=== PATIENT | female | born 1975 | race Caucasian/White ===

== ENCOUNTER → 2017-04-18 10:11 | Outpatient (CLI) | payer BC ==
[2015-09-08 02:27] VITALS: BMI 53.5
[~2017-04-18 10:11] MED LIST: AMBIEN10 MG PO; ARTHROTEC EC 71 EACH PO; CYMBALTA60 MG PO; FOLIC ACID1 MG PO; HYDROCODONE-APA1 TAB PO; MILK THISTLE140 MG PO; NEXIUM40 MG PO; PROTONIX40 MG PO; VITAMIN B-1000 MCG/M IM; VITAMIN D5000 UNIT PO; XANAX1 MG PO
--- NOTE | 2017-04-18 12:09 | NUR ---
Nutrition education for pre/post bariatric surgery: S: Pt reports she had a gastric bypass in 1999 and lost ~170#; however, pt has gained all the lost weight back and now weighs 321#. Pt states she is a stress eater and had numerous surgeries which caused her to gain all the weight back. Pt states she does not eat fast food and drinks only diet sodas. Pts food recall reveals pt is only eating two meals a day. Pt states she does not overeat very often. O: 41 year old female Dx: Morbid obesity Ht: 5'4" Wt: 321# IBW: 120# +/-10% BMI: 55.1 A: Pt is not revealing to me a realistic diet recall. Pt is overeating at meals to be able to gain back 170#. Pt states her only problem is eating peppermint candy when her blood count is low. Pt also reported to me she cooks most meals at home. Pt did report she recently lost and then gained back 30# by giving up regular soda. Reviewed the phases of post-op diet; reviewed sample menus; pouch stretching; no carbonated drinks; daily supplements; protein needs; liquids between meals. Pt with good understanding of information provided. However, I don't think pt is being honest with me or herself about how much food she is eating every day. RDN does not think pt is ready to make the necessary lifestyle changes needed to be successful with lont-term weight loss. P: Provided pt with printed diet information and RDN name and phone number. RDN will be available if needed. Thank you for the consult.
== END ==
LOC: D.FANS 03-13 10:00
DX: Z01.818 Encounter for other preprocedural examination (principal)

== ENCOUNTER → 2017-05-30 17:04 | Outpatient (CLI) | payer BC ==
[2015-09-08 02:27] VITALS: BMI 53.5
== END | disposition home or self-care (01) ==
LOC: D.MAMMO 14:30
DX: Z12.31 Encounter for screening mammogram for malignant neoplasm of breast (principal)

== ENCOUNTER → 2017-07-21 09:13 | Outpatient (CLI) | payer BC ==
[2015-09-08 02:27] VITALS: BMI 53.5
== END | disposition home or self-care (01) ==
LOC: D.RAD 07-17 08:30
DX: E66.01 Morbid (severe) obesity due to excess calories (principal)

== ENCOUNTER 2017-07-31 06:12 | Day surgery (SDC) | payer BC ==
[~2017-07-31] VITALS: Ht 162.6 cm; Wt 145.5 kg
[~2017-07-31 06:12] MED LIST changes: +NEXIUM20 MG PO; -NEXIUM40 MG PO
[2017-07-31] MEDS ORDERED: ROBAXIN500 MG PO (07:17)
[2017-07-31] MEDS ORDERED: IBUPROFEN800 MG PO (07:17)
[2017-07-31] MEDS ORDERED: MOBIC7.5 MG PO (07:17)
[2017-07-31] MEDS ORDERED: GABAPENTIN100 MG PO (07:18)
[2017-07-31] MEDS ORDERED: ZOFRAN ODT4 MG/UDTAB PO (07:18)
[2017-07-31] MEDS ORDERED: LISINOPRIL10 MG PO (07:19)
[2017-07-31] MEDS ORDERED: PROZAC40 MG PO (07:20)
[2017-07-31] MEDS ORDERED: HYSINGLA ER20 MG PO (07:21)
[2017-07-31 07:22] LABS: HEMATOCRIT 36.8 % (36.0-48.0); HEMOGLOBIN 11.5 g/dL (12-16); MCH 24.7 pg (26.0-34.0); MCHC 31.3 g/dL (31.0-37.0); MEAN PLATELET VOLUME 12.2 fL (7.4-10.4); RBC 4.66 10x6/uL (4.00-5.40); RDW 15.4 % (11.5-14.5); WBC 6.9 10x3/uL (4.8-10.8)
[2017-07-31 07:27] VITALS: Ht 162.6 cm; Wt 145.5 kg
== END 2017-07-31 09:35 | disposition home or self-care (01) ==
LOC: D.OPS 06:12
PROVIDERS: Anesthesiology
DX: K21.9 Gastro-esophageal reflux disease without esophagitis (principal); K44.9 Diaphragmatic hernia without obstruction or gangrene; I10 Essential (primary) hypertension; E66.01 Morbid (severe) obesity due to excess calories; Z68.43 Body mass index [BMI] 50.0-59.9, adult; Z01.812 Encounter for preprocedural laboratory examination

== ENCOUNTER 2017-09-20 05:12 | Inpatient (IN) | payer BC, MEDICARE ==
[2017-09-19 13:37] LABS: HEMATOCRIT 39.3 % (36.0-48.0); HEMOGLOBIN 12.2 g/dL (12-16); MCH 25.3 pg (26.0-34.0); MCV 81.4 fL (80.0-100.0); MEAN PLATELET VOLUME 11.7 fL (7.4-10.4); RBC 4.83 10x6/uL (4.00-5.40); RDW 15.9 % (11.5-14.5); WBC 8.5 10x3/uL (4.8-10.8)
[~2017-09-20] VITALS: Ht 162.6 cm; Wt 159.8 kg
--- NOTE | ~2017-09-20 | OP ---
PATIENT NAME: ZAIDA CAMARA MEDICAL RECORD: [id number] :71 LOCATION:[facility] D.2302 ADMISSION DATE:09/20/17 SURGEON: BRAULIO MARAVILLA MD DATE OF OPERATION: 11/07/2017 SURGEON: Braulio Maravilla MD PREOPERATIVE DIAGNOSIS: Intraabdominal sepsis. POSTOPERATIVE DIAGNOSES: 1. Intraabdominal sepsis. 2. Perforated transverse colon with feculent peritonitis and infected mesh, gastrojejunal anastomotic leak. PROCEDURE PERFORMED: 1. EGD with esophageal stent removal, left subclavian CVL, exploratory laparotomy, repair of gastrojejunal anastomosis. 2. Extended left hemicolectomy. 3. Partial gastrectomy, extensive lysis of adhesions, abdominal washout, and placement of ABThera negative pressure wound VAC. ANESTHESIA: General. COMPLICATIONS: None. SPECIMENS: 1. Stented transverse and left colon. 2. Partial gastrectomy. Case was grossly contaminated with feculent peritonitis. ESTIMATED BLOOD LOSS: 400 cc. OPERATIVE COURSE: After consent was obtained, the patient was taken to the operating room and placed in supine position on the operating table. Next, general anesthesia was given via endotracheal intubation, timeout was taken to confirm the correct patient and procedure. Next, the scope was inserted into the oropharynx under direct endoscopic vision, it was passed through the upper esophageal sphincter into the esophagus, this tube was identified, it was grasped, with the retrievable loop of the wire was identified and grasped with a grasper. At this time, the scope was removed and procedure was terminated. Next, the nonfunctioning left CVL was removed, the left chest was prepped and draped in typical sterile fashion, and new left subclavian catheter was placed. The left subclavian vein was cannulated in first pass. The guidewire was placed, tract was dilated with dilator in a standard Seldinger fashion, the catheter was advanced to the wire in standard Seldinger fashion. A Biopatch was placed through the skin using 2-0 nylon suture and sterile Tegaderm dressing. All 3 ports were aspirated and flushed without difficulty. The previous VAC was removed. The abdomen was prepped and draped in typical sterile fashion. An Ioban dressing was placed. A skin incision was made with a 15 blade scalpel. Dissection continued to the inferior edge of the previous incision, the bowel was then entered just below the umbilicus, lysis of adhesion was performed along the midline wound until the midline wound could be opened using Metzenbaum scissors. Once the wound was opened, Bookwalter retractor was placed. Again extensive lysis of adhesions was performed using Metzenbaum scissors and electrocautery until the small bowel and colon were freed from the peritoneum, OPERATIVE REPORT [id number] HOAZAIDA LISA allowing full visualization of the abdomen. All remaining retractors and the Bookwalter were placed. There was feculent peritonitis noted throughout the entire abdomen. The abdomen was copiously irrigated and suctioned. The source and contamination appeared to be from the distal transverse colon, the transverse colon was actively leaking stool. It appeared that had eroded into the peritoneal mesh. The transverse colon was taken down due to the Belén-en-Y limb was just proximal in its antecolic position to the area in preparation. At this time, the splenic flexure was mobilized and the descending colon was mobilized with the white line of Toldt. The mesenteric window was created, the descending colon was transected using a linear cutting BRENDA stapler. The transverse colon mesentery was taken with the Harmonic scalpel as well as the splenic flexure mesentery and the transverse colon mesentery, the colon was passed through the mesenteric window below the jejunal limb and the remaining portion of the hepatic flexure was mobilized. Once the right portion of the transverse colon was transected with linear BRENDA stapler, the transverse colon and descending colon were sent off the field and sent for pathology. The transverse colon was then attached to the distal descending colon and sigmoid colon with BRENDA stapler, common ___ was closed with a BRENDA stapler. The abdomen was again copiously irrigated and suctioned. The gastrojejunostomy tube was removed. The stomach was opened and actively draining the abdomen. At this time, the stomach was closed using linear cutting BRENDA stapler, partial gastrectomy was performed. At this time, again copious irrigation of the abdomen was performed, gown and gloves were changed. The gastrojejunostomy anastomosis was identified. There was a small perforation in the anterior staple line, the edges were freshened using Metzenbaum scissors, the perforation was closed using 3-0 silk suture. The anastomosis was then imbricated using the posterior portion of the stomach as a flap. Next, all remaining visible portions of the peritoneal mesh were removed. A single small bowel enterotomy was identified and closed using 3-0 silk suture in a 2-layer fashion. Once the abdominal cavity appeared clean, dry, and intact, again further irrigation was performed with warm normal saline and ABThera VAC was then placed into the abdominal cavity and placed to suction in anticipation of returning to the OR in 24-48 hours. At the end of the case, all needle and instrument counts were correct. No complications occurred. The patient was transferred in critically ill condition to the ICU, intubated, on multiple pressors. TRANSINT:[id number] Voice Confirmation ID: [id number] DOCUMENT ID: [id number] BRAULIO MARAVILLA MD at 0807 CC: [id number] DICTATION DATE: 11/07/17 1545 PHTHALIC ACID PURIFIER: 11/07/17 1741 ADM IN [facility] [address] [id number]
--- NOTE | ~2017-09-20 | OP ---
PATIENT NAME: ZAIDA CAMARA MEDICAL RECORD: [id number] :71 LOCATION:.[facility] D.2302 ADMISSION DATE:09/20/17 SURGEON: BRAULIO MARAVILLA MD DATE OF OPERATION: 11/22/2017 DATE OF OPERATION: 11/22/2017. SURGEON: Braulio Maravilla MD MANAGER BEHAVIOR: Krishan Davis MD ANESTHESIA: General. PREOPERATIVE DIAGNOSES: 1. Intraabdominal sepsis. 2. Septic shock. 3. End-stage renal disease. 4. Vent-dependent respiratory failure. 5. Open abdominal cavity. POSTOPERATIVE DIAGNOSES: 1. Intraabdominal sepsis. 2. Septic shock. 3. End-stage renal disease. 4. Vent-dependent respiratory failure. 5. Open abdominal cavity. PROCEDURE PERFORMED: 1. Exploratory laparotomy. 2. Abdominal washout. 3. Creation of a loop diverting ileostomy. 4. Colocolonic anastomosis. 5. Mobilization of subcutaneous skin flaps. SPECIMENS: Case was grossly contaminated. ESTIMATED BLOOD LOSS: 250 cc. OPERATIVE COURSE: After consent was obtained, the patient was taken to the operating room and placed in the supine position on the operating table. General anesthesia was given via her tracheostomy, timeout was taken to confirm the correct patient and procedure, ABThera VAC was removed. The abdomen was prepped and draped in the typical sterile fashion. The abdominal cavity was copiously irrigated with several liters of warm normal saline. The small bowel was run from the gastrojejunostomy anastomosis to the terminal ileum. The ascending colon was run and the sigmoid colon was lying next to the ascending colon. At this time, a colocolonic anastomosis was performed using the linear cutting BRENDA linear cutting stapler. The common enterotomy was closed with 2 layers of interrupted 3-0 Vicryl suture. At this time, subcutaneous skin flaps were mobilized. The subcutaneous tissue was mobilized off the external oblique fascia circumferentially to relieve all tension. A diverting loop ileostomy was delivered through the left lateral quadrant. Two THEODORA drains were placed in the right and left pericolic gutters. Retention sutures were placed into the skin using #2-0 nylon suture. An ABThera VAC was placed over the ileostomy and ostomy bridge was placed as well as an ostomy bag. At the end of case, all OPERATIVE REPORT [id number] ZAIDA CAMARA needle and instrument counts were correct. No complications occurred. The patient was transferred to the ICU in critical condition. TRANSINT:[id number] Voice Confirmation ID: [id number] DOCUMENT ID: [id number] BRAULIO MARAVILLA MD at 2108 CC: [id number] DICTATION DATE: 11/22/17 1507 CORPORATION PILOT: 11/22/17 1716 ADM IN [id number] [place] [address]
--- NOTE | ~2017-09-20 | OP ---
PATIENT NAME: ZAIDA CAMARA MEDICAL RECORD: [id number] :71 LOCATION:[facility] D.2307 ADMISSION DATE:09/20/17 SURGEON: BRAULIO MARAVILLA MD DATE OF OPERATION: 10/05/2017 SURGEON: Braulio Maravilla MD PREOPERATIVE DIAGNOSIS: Abdominal wall abscess. POSTOPERATIVE DIAGNOSIS: Abdominal wall abscess. PROCEDURE PERFORMED: Incision and drainage of abdominal wall abscess with wound VAC placement. ANESTHESIA: General. COMPLICATIONS: None. SPECIMENS: Anaerobic and aerobic cultures. Case was grossly contaminated. ESTIMATED BLOOD LOSS: 20 cc. OPERATIVE COURSE: After consent was obtained, the patient was taken to the operating room and placed in supine position on the operating table. Next, general anesthesia was given via laryngeal mask airway. A timeout was taken to confirm the correct patient and procedure. The abdomen was prepped and draped in typical sterile fashion. An elliptical skin incision was made over the previous THEODORA drain site. Approximately, 60 cc of purulent fluid was drained. Cultures were sent for anaerobic and aerobic cultures. The wound bed was then, all and necrotic tissue was dissected with Metzenbaum scissors until all healthy edges and all planes were encountered. The wound was then irrigated with a liter of warm to normal saline. An Adaptic was placed on the external oblique fascia. A wound VAC was then placed in the wound. The wound measured 8 cm in width, about 6 cm in width, about 4 cm in length. At the end of the case, all needle and instrument counts were correct. No complications occurred. The patient was transferred to the recovery room in satisfactory condition. TRANSINT:[id number] Voice Confirmation ID: [id number] DOCUMENT ID: [id number] BRAULIO MARAVILLA MD at 1311 CC: [id number] DICTATION DATE: 10/05/17 0950 CLINICAL SPECIALIST: 10/05/17 1035 [place] [address]
--- NOTE | ~2017-09-20 | CN ---
PATIENT NAME:ZAIDA CAMARA MEDICAL RECORD: [id number] : 71 LOCATION:[facility].2302 ADMIT DATE: 09/20/17 ACCOUNT: [id number] CONSULTING PHYSICIAN: AURY LUO MD REFERRING PHYSICIAN: BRAULIO MARAVILLA MD DATE OF CONSULTATION: 11/30/2017 Psychiatric Consultation IDENTIFYING DATA: The patient is 42 years old and she is admitted to the hospital on a voluntary basis. CHIEF COMPLAINT: Depression and competency. HISTORY OF PRESENT ILLNESS: The patient is a very unfortunate woman, who has had a series of significant medical complications associated with a revision of a lap band. The patient has been on a ventilator for at least a couple of weeks. She has also had renal failure, which apparently is going to be protracted. She currently has a trach and is awake, but is also in restraints because she is trying to pull the tube out. It is my understanding from speaking with the nurse that she is profoundly depressed, which naturally one would expect given her circumstances, but that she is also making statements about wanting no treatments, wanting to be left to . When I go to interview her, she is awake, she makes eye contact with me, she processes extremely slowly, and she answered a few questions correctly and then just stopped interacting with me. The nurse who has been taking care of her came in with me and tried to get her to interact and indicated that she kind of comes and goes with her level of awareness, but she was unable to get her to interact either. The patient was told who I was and why I was there. She clearly is not processing information correctly and it is not really possible to do an evaluation of mental competency given these circumstances. ASSESSMENT: 1. Rule out major depression. 2. Probable delirium, multifactorial. PLAN: At this time, the supportive medical care she is receiving should be continued as long as it is reasonable and does not contradict any sort of living will document that she has. It is my opinion that she is probably delirious as one would expect from a long stay in the ICU and being so critically ill. Once she is able to communicate with me appropriately, I would be happy to come back and see her and make a recommendation given her level of competency. Refusing dialysis or other medical treatments is certainly acceptable and appropriate assuming she can understand and has a basic ability to discuss the relative risks and benefits of not taking the treatment or accepting the treatment. I would be happy to discuss that and give my opinion on it when she is better. I do not think it is appropriate to give her antidepressant medication. Unfortunately, she is not able to take anything orally and so there are no antidepressants that can be used in other forms. In addition to this, I think it is very reasonable to give her p.r.n. Haldol or Ativan when she becomes agitated and I will order a low dose of this on an IM or IV basis. She certainly is critically ill. This is obviously a protracted illness with very unfortunate complications and I am just simply not able to give an opinion about someone's psychiatric state when I cannot communicate with her. CONSULT REPORT [id number] ZAIDA CAMARA TRANSINT:[id number] Voice Confirmation ID: [id number] DOCUMENT ID: [id number] AURY LUO MD at 0833 CC: [id number] DICTATION DATE: 11/30/17 1402 GRIEVANCE MANAGER: 11/30/17 1442 ADM IN [id number] [place] [address]
--- NOTE | ~2017-09-20 | OP ---
PATIENT NAME: ZAIDA CAMARA MEDICAL RECORD: [id number] :71 LOCATION:.[facility] D.2302 ADMISSION DATE:09/20/17 SURGEON: CHRISTI CHAMBERS MD DATE OF OPERATION: 11/20/2017 This is an assistance note. I assisted Dr. Rose Moscoso. The patient was conveyed to the operating room on 11/20/2017. I was present for all the critical portions of the case. Due to the complexity of the patient's condition, it was necessary to have 2 attending surgeons present during the procedure. I scrubbed in as Dr. Moscoso was beginning the laparotomy. I assisted with some dissection of the bowel structures. I assisted him with division of some mesentery. I also used the linear cutting stapler to divide portions of small bowel. 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 I assisted with aspiration and irrigation. I assisted with placement of the ABThera wound VAC. TRANSINT:[id number] Voice Confirmation ID: [id number] DOCUMENT ID: [id number] CHRISTI CHAMBERS MD at 0938 CC: [id number] DICTATION DATE: 11/20/17 0952 CIGAR HEAD PIERCER: 11/20/17 1543 ADM [id number] [place] [address]
--- NOTE | ~2017-09-20 | OP ---
PATIENT NAME: ZAIDA CAMARA MEDICAL RECORD: [id number] :71 LOCATION:[facility] ADMISSION DATE:09/20/17 SURGEON: BRAULIO MARAVILLA MD DATE OF OPERATION: 10/13/2017 SURGEON: Braulio Maravilla MD PREOPERATIVE DIAGNOSIS: End-stage renal disease. POSTOPERATIVE DIAGNOSIS: End-stage renal disease. PROCEDURE PERFORMED: 1. Removal of right subclavian Trialysis catheter. 2. Insertion of tunneled right subclavian HemoSplit hemodialysis catheter with immediate interpretation fluoroscopy. 3. Wound VAC change, midline abdominal incision greater than 50 square cm. ANESTHESIA: General. COMPLICATIONS: None. SPECIMENS: None. CASE: First case was clean, second case was contaminated. ESTIMATED BLOOD LOSS: 20 cc. OPERATIVE COURSE: After consent was obtained, the patient was taken to the operating room and placed in the supine position on the operating table. Next, general anesthesia was given via endotracheal intubation after a timeout was performed to confirm the correct patient and procedure. The right chest was prepped and draped in typical sterile fashion under fluoroscopy. A timeout was taken to confirm the correct patient and procedure. Fluoroscopy was used, guidewire was placed through the Trialysis catheter. The wire was advanced to the atriocaval junction under fluoroscopy. The Trialysis catheter was removed. The dilator and breakaway sheath were then passed over the wire in a standard Seldinger fashion under fluoroscopy in the atriocaval junction. A separate local anesthetic was administered in the right chest wall, skin incision was made with a 15 blade scalpel. The HemoSplit catheter was then tunneled from the skin incision site with a needle stick site using the tunneling device under fluoroscopy. Next, the wire and dilator were removed. The catheter was advanced to the breakaway sheath under fluoroscopy to the atriocaval junction. The breakaway sheath was removed. The catheter was secured to the skin using 2-0 nylon suture and sterile Tegaderm dressings. All drapes were removed, the right chest wall was draped with sterile towels. The abdomen was then prepped and draped in typical sterile fashion. The wound VACs were removed. The midline abdominal incision was copiously irrigated and suctioned and the abdominal wall abscess site was copiously irrigated and suctioned. VACs were placed, the midline incision was approximately 18 cm in length, 6 cm in width, 5 cm in depth. The left chest wall back was placed since approximately 8 cm in depth, 6 cm in width, 4 cm and both VACs were placed in negative pressure wound therapy. At the end of the case, all needle and instrument counts were correct. No complications occurred. The patient was extubated and transferred to the PACU in stable condition. OPERATIVE REPORT [id number] ZAIDA CAMARA TRANSINT:[id number] Voice Confirmation ID: [id number] DOCUMENT ID: [id number] BRAULIO MARAVILLA MD at 1046 CC: [id number] DICTATION DATE: 10/13/17 1427 PLANNING ASSOCIATE: 10/13/17 1756 ADM IN [id number] [place] [address]
--- NOTE | ~2017-09-20 | OP ---
PATIENT NAME: ZAIDA CAMARA MEDICAL RECORD: [id number] :71 LOCATION:[facility] ADMISSION DATE:09/20/17 SURGEON: BRAULIO MARAVILLA MD DATE OF OPERATION: 10/23/2017 SURGEON: Braulio Maravilla MD PREOPERATIVE DIAGNOSES: 1. Status post gastric bypass. 2. End-stage renal disease on hemodialysis. 3. Anastomotic leak. POSTOPERATIVE DIAGNOSES: 1. Status post gastric bypass. 2. End-stage renal disease on hemodialysis. 3. Anastomotic leak. PROCEDURES PERFORMED: 1. EGD with fully covered EndoMAXX stent, gastrojejunostomy. 2. Immediate interpretation of fluoroscopy. 3. Wound VAC change. ANESTHESIA: General. ESTIMATED BLOOD LOSS: Minimal. Case was clean contaminated. OPERATIVE COURSE: After consent was obtained, the patient was taken to the operating room and placed in supine position on the operating table. Next, general anesthesia was given via endotracheal intubation after the bite block was placed. The endoscope was advanced with the bite block. A timeout was taken to confirm the correct patient and procedure. At this time, the scope was advanced with a bite block. It was passed posterior into the posterior oropharynx posterior to epiglottis. Under direct endoscopic vision, it was advanced through the esophagus to the GE junction, the gastric pouch. The gastrojejunostomy anastomosis appeared intact. There was one small section of the air bubbles noted with some egress of fluid. At this time, fluoroscopy was performed to khadra the site of the anastomosis. An Amplatz wire was passed through the scope. The scope was removed. Next, the EndoMAXX 23 x 100 mm stent was passed over the wire under fluoroscopy and advanced through the anastomosis. It was deployed at the gastrojejunostomy anastomosis. The wire and stent deployment devices were removed. The scope was reinserted. It was passed through the anastomosis. The mid portion of the stent was across, covering the gastrojejunostomy. It extended approximately almost to the level of the GE junction and within the gastric pouch. At this time, the scope was removed. The patient tolerated the procedure well. Next, the abdominal wound VACs were removed. The skin was cleaned and prepped. The wound was irrigated and suctioned. Adaptic was placed into the wound bed. The wound VAC was placed, approximately 15 cm in length x 5 cm in width x 8 cm in depth. The VAC was placed to suction. At the end of the case, all needle and instrument counts were correct. No complications occurred. The patient was extubated and transferred to the PACU in stable condition. TRANSINT:[id number] Voice Confirmation ID: [id number] DOCUMENT ID: [id number] OPERATIVE REPORT [id number] ZAIDA CAMARA,BRAULIO Galicia MD at 1720 CC: [id number] DICTATION DATE: 10/23/17 1502 GLUER MACHINE OPERATOR: 10/23/17 1629 ADM IN [facility] [address] [id number]
--- NOTE | ~2017-09-20 | OP ---
PATIENT NAME: ZAIDA CAMARA MEDICAL RECORD: [id number] :71 LOCATION:[facility] D.2307 ADMISSION DATE:09/20/17 SURGEON: BRAULIO MARAVILLA MD DATE OF OPERATION: 09/22/2017 SURGEON: Braulio Maravilla MD PREOPERATIVE DIAGNOSES: 1. Septic shock. 2. Acute blood loss anemia. 3. History of exploratory laparotomy with revision of Belén-en-Y gastric bypass. 4. Acute renal failure. 5. Acute respiratory failure. POSTOPERATIVE DIAGNOSES: 1. Septic shock. 2. Acute blood loss anemia. 3. History of exploratory laparotomy with revision of Belén-en-Y gastric bypass. 4. Acute renal failure. 5. Acute respiratory failure. 6. Perforated gastric remnant. PROCEDURES PERFORMED: 1. Exploratory laparotomy. 2. Intra-abdominal washout. 3. Partial gastrectomy with placement of gastrostomy tube. 4. Negative-pressure wound therapy, greater than 50 sq. cm. ANESTHESIA: General. COMPLICATIONS: None. SPECIMENS: Partial gastrectomy. Case was grossly contaminated. OPERATIVE COURSE: After consent was obtained, the patient was taken to the operating room and placed in supine position on the operating table. His previous midline abdominal milton were removed. The abdomen was prepped and draped in typical sterile fashion. Timeout was taken to confirm the correct patient and procedure. The previous fascial closure sutures were removed. The abdomen was opened and approximately 1600 cc of succus and ascites were suctioned from the abdomen. A Bookwalter retractor was placed. The abdominal cavity was copiously irrigated and suctioned at this time. The gastrojejunostomy was evaluated and Belén-en-Y limb appeared intact. The gastrojejunostomy anastomosis appeared intact. Suture line was reinforced with 3-0 silk suture and Evicel. The gastric remnant was then evaluated. There was a large anterior perforation with full-thickness necrosis approximately 3 x 2 cm of the anterior stomach. The necrotic tissue was sharply debrided back to a healthy bleeding tissue. The gastrotomy site was then closed in 2 layers, inner layer with 3-0 Vicryl suture. Next, a pursestring 2-0 silk suture was tied around the gastrostomy tube. The suture line was then imbricated using 3-0 silk suture. The gastrostomy tube was delivered to the left upper quadrant. The small bowel was run from the gastrojejunostomy into the jejunojejunostomy. The OPERATIVE REPORT [id number] ZAIDA CAMARA small bowel was run to the ligament of Treitz. All 4 quadrants of the abdomen were copiously irrigated and suctioned. An additional THEODORA drain was placed into the upper abdomen. At this time, the fascia was closed using #1 Prolene suture. The remaining portion of the wound was closed with a wound VAC sponge for approximately 20 cm x 6 cm x 4 cm placed in the midline. Subcutaneous tissue was placed in negative-pressure wound therapy. At the end of the case, all needle and instrument counts were correct. No complications occurred. ESTIMATED BLOOD LOSS: 100 mL. Case was grossly contaminated. The patient was transferred to the ICU in critical condition. TRANSINT:[id number] Voice Confirmation ID: [id number] DOCUMENT ID: [id number] BRAULIO MARAVILLA MD at 0755 CC: [id number] DICTATION DATE: 09/22/172125 RN FACULTY: 09/23/174 ADM IN [id number] [place] [address]
--- NOTE | ~2017-09-20 | OP ---
PATIENT NAME: ZAIDA CAMARA MEDICAL RECORD: [id number] :71 LOCATION:.[facility] D.2302 ADMISSION DATE:09/20/17 SURGEON: BRAULIO MARAVILLA MD DATE OF OPERATION: 11/13/2017 SURGEON: Braulio Maravilla MD PREOPERATIVE DIAGNOSES: 1. Intraabdominal sepsis. 2. End-stage renal disease. 3. Septic shock. ANESTHESIA: General. COMPLICATIONS: None. SPECIMENS: None. Case was grossly contaminated. ESTIMATED BLOOD LOSS: 30 cc. OPERATIVE COURSE: After consent was obtained, the patient was taken to the operating room. Timeout was taken to confirm the correct patient and procedure. The wound VAC was removed. The abdomen was prepped and draped in the typical sterile fashion. The abdomen was copiously irrigated and suctioned. All the adhesions were loosely freed with very gentle meticulous dissection. The bowel was run. There was multiple intraloop abscess. There was breakdown of the colocolonic anastomosis with gross spillage of stool. The necrotic edges of the anastomosis were sharply debrided using Metzenbaum scissors. Once all edges had been sharply debrided to fresh clean bleeding wound edges, a handsewn colocolonic anastomosis was performed using a combination of 2-0 Stratafix suture and 3-0 Vicryl suture. The abdomen was then copiously irrigated and suctioned with several liters of warm normal saline. The gastrojejunostomy anastomosis was evaluated. There did not appear to be any signs of leak. The partial gastrectomy anastomosis appeared intact. The small bowel was run from the gastrojejunostomy to the ileocecal valve. Again, there was no gross evidence of small bowel leakage. At this time, again the abdomen was irrigated and suctioned. The colocolonic anastomosis appeared intact. At this time, the abdomen was repack with intra-abdominal ABThera wound VAC system. The intra-abdominal portion of the VAC was cut to size and placed, tucked into all 4 quadrants. Blue wound sponges were placed on top. The VAC was placed to suction with good seal at this time. At the end of the case, all needle and instrument counts were correct. No complications occurred. The patient was transferred to the ICU in critical condition. TRANSINT:[id number] Voice Confirmation ID: [id number] DOCUMENT ID: [id number] OPERATIVE REPORT [id number] ZAIDA CAMARA JAMES J MD at 2109 CC: [id number] DICTATION DATE: 11/13/17 1437 PILL COATER: 11/13/17 1509 ADM IN [facility] [address] [id number]
--- NOTE | ~2017-09-20 | OP ---
PATIENT NAME: ZAIDA CAMARA MEDICAL RECORD: [id number] :71 LOCATION:[facility] D.2307 ADMISSION DATE:09/20/17 SURGEON: BRAULIO MARAVILLA MD DATE OF OPERATION: 09/20/2017 SURGEON: Braulio Maravilla MD HOSPITAL EDUCATOR: Krishan Davis MD PREOPERATIVE DIAGNOSES: Morbid obesity, gastroesophageal reflux disease, osteoarthritis, body mass index 50-59.9, nonalcoholic fatty liver disease. POSTOPERATIVE DIAGNOSES: Morbid obesity, gastroesophageal reflux disease, osteoarthritis, body mass index 50-59.9, nonalcoholic fatty liver disease. PROCEDURE PERFORMED: 1. Diagnostic laparoscopy. 2. Laparoscopic lysis of adhesions. 3. Exploratory laparotomy. 4. Revision of Belén-en-Y gastric bypass. 5. Partial gastrectomy. ANESTHESIA: General. COMPLICATIONS: None. ESTIMATED BLOOD LOSS: 1000 cc. Case was clean contaminated. OPERATIVE COURSE: After consent was obtained, the patient was taken to the operating room and placed in the supine position on the operating table. Next, general anesthesia was given via endotracheal intubation, after a timeout was taken to confirm the correct patient and procedure. The abdomen was then prepped and draped in typical sterile fashion. Local anesthetic was injected in the right upper quadrant. A stab incision was made with 11-blade scalpel. Using a 5-mm bladeless optical trocar, the abdomen was entered under direct laparoscopic vision. Adequate pneumoperitoneum was achieved. The patient has had a previous open Belén-en-Y gastric bypass, open incisional hernia repair and exploratory laparotomy for an emergent repair of a small-bowel obstruction, extensive lysis of adhesions was performed using the Harmonic scalpel and blunt dissection until all remaining trocars could be placed. It took approximately one and half hours. Again, all trocars were placed after the administration of local anesthetic under direct laparoscopic vision, a 12-mm trocar and 11-mm trocar on the right side and two 5-mm trocars on the left side and Luba liver retractor in the subxiphoid position. Once all trocars were placed, Dr. Davis assisted throughout the remaining portion of the operation. Due to the extreme difficulty of the procedure as well as the patient's body habitus and prior operations, Dr. Davis's assistance was required throughout the operation. The upper stomach was mobilized. Laparoscopically, all adhesions taken off the liver bed as well as along the splenic flexure ____ stomach, the lesser sac was entered to help identify previous planes. This was difficult, there was previous gastric bypass done in a retrocolic retrogastric fashion. The gastrojejunostomy was unable to be dissected laparoscopically. There were significant adhesions in the pelvis, which did ____ allow mobilization of the OPERATIVE REPORT [id number] ZAIDA CAMARA small bowel for revision of the gastric bypass. At this time, exploratory laparotomy was performed. The Bookwalter retractor was placed and continued extensive dissection was performed. The previous gastric bypass was performed with a TA stapler without division in the stomach at this time to facilitate revision. The stomach was transected with the linear cutting stapler. The new gastric remnant was dissected away. The gastrojejunostomy was excised. Prior to resection of the gastrojejunostomy, the 25-mm EEA stapler was placed into the gastric pouch. The jejunal limb was transected with the linear cutting stapler. The Belén limb was then dissected through the mesenteric defect and excised at its jejunojejunostomy. At this time, the ligament of Treitz was identified. At this time, a standard Belén-en-Y gastric bypass was performed with 100 cm of bypass, small bowel. The jejunum was divided and new Belén limb was taken to the gastric pouch in standard candy cane fashion. With the EEA stapler, a gastrojejunostomy was performed. A drain was placed in the upper abdomen and new jejunojejunostomy was created bypassing approximately 100 cm of small bowel. The jejunojejunostomy was performed using a linear cutting stapler as well as TA. The common enterotomy was closed with a TA 60. An NG tube was placed under direct tactile sensation through the gastrojejunostomy. Next, the abdomen was copiously irrigated and suctioned. Careful attention was paid to hemostasis. Multiple ____ was placed around the spleen. The midline incision with the previous mesh was closed with #1 Prolene. The skin was closed with milton. THEODORA drain was placed to bulb suction. At the end of the case, all needle and instrument counts were correct. The patient was transferred and intubated to the ICU in guarded condition. TRANSINT:[id number] Voice Confirmation ID: [id number] DOCUMENT ID: [id number] BRAULIO MARAVILLA MD at 0814 CC: [id number] DICTATION DATE: 09/20/17 2339 PHYSICAL THERAPIST ASSISTANT: 09/21/17 0128 ADM IN [place] [id number] [place] [address]
--- NOTE | ~2017-09-20 | OP ---
PATIENT NAME: ZAIDA CAMARA MEDICAL RECORD: [id number] :71 LOCATION:[facility] D.2302 ADMISSION DATE:09/20/17 SURGEON: BRAULIO MARAVILLA MD DATE OF OPERATION: 11/15/2017 PREOPERATIVE DIAGNOSES: 1. Vent-dependent respiratory failure. 2. Intra-abdominal sepsis. POSTOPERATIVE DIAGNOSES: 1. Vent-dependent respiratory failure. 2. Intra-abdominal sepsis. PROCEDURES PERFORMED: 1. Percutaneous tracheostomy. 2. Abdominal washout. 3. Intra-abdominal ABThera wound VAC placement. ANESTHESIA: General. COMPLICATIONS: None. SPECIMENS: None. Case was contaminated. OPERATIVE COURSE: After consent was obtained, the patient was taken to the operating room and placed in the supine position on the operating table. Next, general anesthesia was given. Thereafter, a time-out was taken to confirm the correct patient and procedure. The neck was prepped and draped in typical sterile fashion. Local anesthetic was administered. A vertical incision was made. The bronchoscope was passed through the endotracheal tube and advanced to the end of the endotracheal tube. The endotracheal tube was pulled back to 19 cm from the lip. The needle and angiocatheter were stuck into the trachea and immediately identified with the bronchoscope. The needle was removed. The angiocatheter was left in place. The wire was passed through the Angiocath under direct bronchoscopic vision. The angiocatheter was removed. The dilator was then passed over the wire in a standard Seldinger fashion. A 7-Kiswahili trach was then passed over the wire under bronchoscopic vision in standard Seldinger fashion. The wire was removed. The balloon was inflated. The ventilator circuit was immediately connected to the tracheostomy tube with adequate end tidal CO2. It was sutured in place using 2-0 Prolene suture. At the end of the case, all needle and instrument counts were correct. No complications occurred. Next, the neck was covered. The ABThera wound VAC was removed. The abdomen was prepped and draped in typical sterile fashion. Three liters of warmed normal saline was used to irrigate the abdomen. All 4 quadrants were examined. The colonic anastomosis had good integrity. There was no gross contamination, no feculence, and no succuss. At this time, a sterile ABThera VAC was cut to size. It was placed intraabdominally. The blue sponge was then placed over the ABThera VAC, which is greater than 50 squared-cm. It was paid to the abdominal wall. It was placed to negative pressure therapy with good seal. At the end of the case, all needle and instrument counts were correct. The patient was transferred in critical condition back to the ICU. OPERATIVE REPORT [id number] ZAIDA CAMARA TRANSINT:[id number] Voice Confirmation ID: [id number] DOCUMENT ID: [id number] BRAULIO MARAVILLA MD at 1756 CC: [id number] DICTATION DATE: 11/15/17 1426 QUARRY WORKER: 11/15/17 1525 ADM IN [place] [id number] [place] [address]
--- NOTE | ~2017-09-20 | EC ---
PATIENT:ZAIDA CAMARA DATE OF SERVICE: 09/20/17 SEX: F MEDICAL RECORD: [id number] DATE OF : 71 LOCATION:[facility] D230 AGE OF PATIENT: 42 ADMISSION DATE: 09/20/17 REFERRING PHYSICIAN: INTERPRETING PHYSICIAN: CADEN TOMLIN MD ECHOCARDIOGRAM REPORT ECHO CHARGES 5 ECHO LIMITED CLINICAL DIAGNOSIS: HYPOTENSION/TACHYCARDIA ECHOCARDIOGRAPHIC MEASUREMENTS (adult normal given) AC root (d.<3.7cm) cm LV Septum d (<1.2 cm> cm Valve Excursion cm LV Septum (systole) cm Left Atria (s.<4.0cm> 3.6 cm LVPW d(<1.2cm) cm RV (d.<2.3cm) 3.2 cm LVPW (sytole) cm LV diastole(<5.6CM) 4.3 cm MV E-F(>70mm/sec) cm LV systole 2.8 cm LVOT Diameter 1.9 cm MV exc.(>10mm) cm Est.ejection fraction (50-75%) % Pericardial Effusion N DOPPLER: LVIT cm/sec A 102 cm/sec E 79.0 cm/sec LA cm/sec RVSP 25 mmHg LVOT 155 cm/sec AOP1/2T m/s Asc. Ao 206 cm/sec RVOT cm/sec RA cm/sec PA cm/sec AV Gradient Peak 16.98mmHg AV Mean 9.41 mmHg AV Area 1.7 cm MV Gradient Peak 6.36 mmHg MV Mean 2.74 mmHg MV Area cm COMMENTS: Canvas Baster: Gurmeet KC Mineral Engineer: 1 Dr. Tomlin TAPE# PACS DATE OF SERVICE: 09/22/2017 ECHOCARDIOGRAM DATE OF SERVICE: 09/22/2017 FINDINGS: 1. Left ventricular chamber size is within normal limits. Left ventricular systolic function is normal. Overall ejection fraction estimated at 65%. 2. Left atrium, right atrium, and right ventricle chamber sizes are within ECHOCARDIOGRAM REPORT [id number] ZAIDA CAMARA normal limits. 3. Valvular structures have normal structure and motion. 4. Doppler interrogation only reveals mild tricuspid regurgitation. No other valvular insufficiency or stenosis. 5. No evidence of pericardial effusion or left ventricular thrombus. TRANSINT:[id number] Voice Confirmation ID: [id number] DOCUMENT ID: [id number] CADEN TOMLIN MD at 0902 CC: [id number] DICTATION DATE: 09/22/17 170 LOCK UP WORKER: 09/22/17 1850 ADM IN [place] [id number] [place] [id number]
--- NOTE | ~2017-09-20 | OP ---
PATIENT NAME: ZAIDA CAMARA MEDICAL RECORD: [id number] :71 LOCATION:[facility] D.2302 ADMISSION DATE:09/20/17 SURGEON: BRAULIO MARAVILLA MD DATE OF OPERATION: 11/20/2017 SURGEON: Braulio Maravilla MD POSTOPERATIVE DIAGNOSES: Intra-abdominal abscess, peritonitis, and septic shock. ANESTHESIA: General. COMPLICATIONS: None. SPECIMENS: 1. Appendix. 2. Small bowel resection. 3. Partial colectomy. OPERATION: Abdominal washout, appendectomy, partial colectomy, small bowel resection, and repair of enteric fistula. Case was grossly contaminated. ESTIMATED BLOOD LOSS: 75 cc. DESCRIPTION OF PROCEDURE: After consent was obtained, the patient was taken to the operating room and placed in the supine position on the operating table. Next, general anesthesia was given via tracheostomy. Next, a timeout was taken to confirm the correct patient and procedure. The abdomen was prepped and draped in typical sterile fashion. ABThera wound VAC was removed. At this time, the abdomen was copiously irrigated and suctioned with several liters of warm normal saline. The small bowel was mobilized, all 4 quadrants were examined, and irrigated. The colocolonic anastomosis was broken down with gross spillage of stool. At this time, the right colon was mobilized. The sigmoid colon was mobilized. The sigmoid colon was stapled off. A transverse colectomy was performed. The sigmoid colon was laid into the right lower quadrant. Again, the abdomen was again copiously irrigated and suctioned. A small bowel fistula was identified near the terminal ileum at the site of a previous small bowel anastomosis. The prior small-bowel anastomosis was resected using BRENDA linear cutting stapler with green load milton. Same staple loads were used to ligate the ends of the right colon and sigmoid colon. No small bowel anastomosis was performed at this time. The staple lines were tagged with suture. Again, the abdominal cavity was copiously irrigated and suctioned. The abdominal cavity appeared at this time, there was gross control of intraabdominal contamination and there was no active bleeding, no active drainage of small bowel contents, no active drainage of colonic contents. 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 Again, the abdominal cavity was copiously irrigated and suctioned with the cecum mobilized and appendectomy was performed using the linear cutting BRENDA stapler and the Harmonic scalpel was used to dissect the mesentery. The appendix was passed off for permanent pathology. The small bowel was run from the gastrojejunostomy to the terminal ileum. Again, the abdominal cavity was copiously irrigated and suctioned. An ABThera wound VAC was placed in the abdominal cavity and secured to the skin, secured to wound VAC with good seal. At the end of the case, all needle and instrument counts were correct. No complications occurred. The patient was returned to OPERATIVE REPORT [id number] ZAIDA CAMARA ICU in critical condition. TRANSINT:[id number] Voice Confirmation ID: [id number] DOCUMENT ID: [id number] BRAULIO MARAVILLA MD at 2034 CC: [id number] DICTATION DATE: 11/20/17 0939 TELEVISION NEWS PRODUCER: 11/20/17 1412 ADM IN [facility] [address] [place] [address]
--- NOTE | ~2017-09-20 | OP ---
PATIENT NAME: ZAIDA CAMARA MEDICAL RECORD: [id number] :71 LOCATION:[facility] D.2302 ADMISSION DATE:09/20/17 SURGEON: BRAULIO MARAVILLA MD DATE OF OPERATION: 11/09/2017 SURGEON: Braulio Maravilla MD PREOPERATIVE DIAGNOSIS: Intraabdominal sepsis. POSTOPERATIVE DIAGNOSIS: Intraabdominal sepsis. PROCEDURE PERFORMED: Removal of ABThera wound VAC, abdominal washout, and placement of ABThera abdominal wound VAC. ANESTHESIA: General. COMPLICATIONS: None. SPECIMENS: None. Case was contaminated. ESTIMATED BLOOD LOSS: Minimal. OPERATIVE COURSE: After consent was obtained, the patient was taken to the operating room and placed in supine position on the operating table. The patient's ABThera VAC was removed. The abdomen was then prepped and draped in typical sterile fashion. Ioban dressing was placed. The abdomen was irrigated with approximately 4 liters of warm normal saline. The small bowel was run multiple 3-0 Vicryl and reinforcing sutures were placed along the gastrojejunostomy anastomosis as well as the colorectal anastomosis. There was some murky fluid noted at the abdomen. No obvious bowel leaks. The bowel was run from the gastrojejunostomy to the rectum, the abdomen was continuously irrigated throughout the abdominal examination, Eviseal was placed along the gastrojejunostomy anastomosis. Next, the intra-abdominal ABThera wound VAC was placed. It was placed to suction with good seal. At this time, the patient was transferred back to the ICU in critically ill condition on the ventilator. TRANSINT:[id number] Voice Confirmation ID: [id number] DOCUMENT ID: [id number] BRAULIO MARAVILLA MD at 1616 CC: [id number] DICTATION DATE: 11/09/17 1538 TESTER EQUIPMENT: 11/09/17 1610 [place] [address]
[~2017-09-20 05:12] MED LIST changes: +GABAPENTIN100 MG PO; +HYSINGLA ER20 MG PO; +IBUPROFEN800 MG PO; +LISINOPRIL10 MG PO; +MOBIC7.5 MG PO; +PROZAC40 MG PO; +ROBAXIN500 MG PO; +VITAMIN E1000 UNI1; +ZOFRAN ODT4 MG/UDTAB PO
[2017-09-20] MEDS ORDERED: KLONOPIN0.5 MG PO (11:51)
[2017-09-20 11:54] VITALS: BP 113/67; BMI 55.2
[2017-09-20 23:30] VITALS: BP 64/43
[2017-09-21] VITALS (26 sets, daily range): BP systolic 64–141; BP diastolic 31–92; BMI 55.2; BMI 58.2
[2017-09-21 01:29] LABS: BASOPHILS 0.1 % (0-2); EOSINOPHILS 0 % (0-7); HEMATOCRIT 33.8 % (36.0-48.0); HEMOGLOBIN 10.7 g/dL (12-16); IMMATURE GRANULOCYTES 0.3 % (0-5); LYMPHOCYTES 7.4 % (15-50); MCH 26.4 pg (26.0-34.0); MCHC 31.7 g/dL (31.0-37.0); MCV 83.3 fL (80.0-100.0); MEAN PLATELET VOLUME 11.2 fL (7.4-10.4); MONOCYTES 9.9 % (2-11); NEUTROPHILS 82.3 % (40-80); PLATELET COUNT 336 10x3/uL (130-400); RBC 4.06 10x6/uL (4.00-5.40); RDW 15.8 % (11.5-14.5)
[2017-09-21 01:31] LABS: WBC 15.5 10x3/uL (4.8-10.8)
[2017-09-21 01:43] LABS: ALBUMIN 2.2 g/dL (3.4-5.0); ANION GAP 15.4 mmol/L (8-16); CARBON DIOXIDE 18.9 mmol/L (21.0-32.0); CREATININE - SERUM 0.9 mg/dL (0.6-1.3); MAGNESIUM - SERUM 1.2 mg/dL (1.8-2.4); POTASSIUM - SERUM 4.3 mmol/L (3.5-5.1); PROTEIN - SERUM 4.9 g/dL (6.4-8.2)
[2017-09-21 05:48] LABS: BASOPHILS 0.1 % (0-2); EOSINOPHILS 0 % (0-7); HEMATOCRIT 33.5 % (36.0-48.0); HEMOGLOBIN 10.7 g/dL (12-16); IMMATURE GRANULOCYTES 0.3 % (0-5); LYMPHOCYTES 9.2 % (15-50); MCH 26.4 pg (26.0-34.0); MCHC 31.9 g/dL (31.0-37.0); MCV 82.5 fL (80.0-100.0); MEAN PLATELET VOLUME 11.5 fL (7.4-10.4); MONOCYTES 9.7 % (2-11); NEUTROPHILS 80.7 % (40-80); PLATELET COUNT 315 10x3/uL (130-400); RBC 4.06 10x6/uL (4.00-5.40); RDW 15.9 % (11.5-14.5); WBC 14.1 10x3/uL (4.8-10.8)
[2017-09-21 06:06] LABS: ANION GAP 14.3 mmol/L (8-16); CALCIUM 7.1 mg/dL (8.5-10.1); CARBON DIOXIDE 19.8 mmol/L (21.0-32.0); POTASSIUM - SERUM 4.1 mmol/L (3.5-5.1)
[2017-09-21 06:08] LABS: MAGNESIUM - SERUM 2.1 mg/dL (1.8-2.4)
[2017-09-22] VITALS (75 sets, daily range): BP systolic 75–113; BP diastolic 44–88
[2017-09-22 05:12] LABS: HEMATOCRIT 31.9 % (36.0-48.0); HEMOGLOBIN 9.7 g/dL (12-16); RBC 3.72 10x6/uL (4.00-5.40); WBC 30.1 10x3/uL (4.8-10.8)
[2017-09-22 05:13] LABS: MCH 26.1 pg (26.0-34.0); MCHC 30.4 g/dL (31.0-37.0); MCV 85.8 fL (80.0-100.0); PLATELET COUNT 355 10x3/uL (130-400); RDW 16.8 % (11.5-14.5)
[2017-09-22 05:33] LABS: ALBUMIN 1.7 g/dL (3.4-5.0); ANION GAP 16.1 mmol/L (8-16); BILIRUBIN - DIRECT 0.51 mg/dL (0.00-0.30); BILIRUBIN - INDIRECT 0.28 mg/dL (0.00-1.00); BILIRUBIN - TOTAL 0.79 mg/dL (0.2-1.3); CARBON DIOXIDE 18.8 mmol/L (21.0-32.0); CREATININE - SERUM 3.1 mg/dL (0.6-1.3); MAGNESIUM - SERUM 1.9 mg/dL (1.8-2.4); PHOSPHOROUS 4.3 mg/dL (2.5-4.9); POTASSIUM - SERUM 4.9 mmol/L (3.5-5.1); PROTEIN - SERUM 4.7 g/dL (6.4-8.2); THYROID STIMULATING HORMONE 0.75 uIU/mL (0.36-3.74)
[2017-09-22 05:56] LABS: EOSINOPHILS 1 % (0-7); LYMPHOCYTES 24 % (15-50); MONOCYTES 10 % (2-11); NEUTROPHILS 56 % (40-80)
[2017-09-22 05:57] LABS: PLATELET ESTIMATE NORMAL
[2017-09-22 14:44] LABS: BASOPHILS 0.1 % (0-2); EOSINOPHILS 0 % (0-7); HEMATOCRIT 30.9 % (36.0-48.0); HEMOGLOBIN 9.7 g/dL (12-16); IMMATURE GRANULOCYTES 1.5 % (0-5); LYMPHOCYTES 11.9 % (15-50); MCH 26.3 pg (26.0-34.0); MCHC 31.4 g/dL (31.0-37.0); MCV 83.7 fL (80.0-100.0); MEAN PLATELET VOLUME 11.6 fL (7.4-10.4); MONOCYTES 9.2 % (2-11); NEUTROPHILS 77.3 % (40-80); PLATELET COUNT 321 10x3/uL (130-400); RBC 3.69 10x6/uL (4.00-5.40); RDW 16.7 % (11.5-14.5); WBC 29.6 10x3/uL (4.8-10.8)
[2017-09-22 17:08] LABS: INR 1.16 (0.85-1.17); PROTIME 14.7 SECONDS (11.6-15.0)
[2017-09-22 17:09] LABS: APTT 33.5 SECONDS (22.8-39.4)
[2017-09-22 22:01] LABS: BASOPHILS 0.1 % (0-2); EOSINOPHILS 0 % (0-7); HEMATOCRIT 29.9 % (36.0-48.0); HEMOGLOBIN 9.6 g/dL (12-16); IMMATURE GRANULOCYTES 1.1 % (0-5); LYMPHOCYTES 10.9 % (15-50); MCH 26.7 pg (26.0-34.0); MCHC 32.1 g/dL (31.0-37.0); MCV 83.1 fL (80.0-100.0); MEAN PLATELET VOLUME 11.8 fL (7.4-10.4); MONOCYTES 8.9 % (2-11); PLATELET COUNT 381 10x3/uL (130-400)
[2017-09-22 22:42] LABS: BILIRUBIN - TOTAL 0.71 mg/dL (0.2-1.3); CREATININE - SERUM 4.3 mg/dL (0.6-1.3); PROTEIN - SERUM 3.9 g/dL (6.4-8.2); VANCOMYCIN - TROUGH 38.8 ug/mL (10.0-20.0)
[2017-09-22 22:43] LABS: CARBON DIOXIDE 26.1 mmol/L (21.0-32.0); POTASSIUM - SERUM 4.1 mmol/L (3.5-5.1)
[2017-09-22 22:44] LABS: ALBUMIN 1.1 g/dL (3.4-5.0); CALCIUM 6.2 mg/dL (8.5-10.1)
[2017-09-23] VITALS (104 sets, daily range): BP systolic 84–143; BP diastolic 41–74
[2017-09-23 04:20] LABS: BASOPHILS 0.1 % (0-2); EOSINOPHILS 0 % (0-7); HEMATOCRIT 28.7 % (36.0-48.0); HEMOGLOBIN 9.1 g/dL (12-16); IMMATURE GRANULOCYTES 1.1 % (0-5); LYMPHOCYTES 15.2 % (15-50); MCH 26.4 pg (26.0-34.0); MCHC 31.7 g/dL (31.0-37.0); MCV 83.2 fL (80.0-100.0); MEAN PLATELET VOLUME 11.7 fL (7.4-10.4); MONOCYTES 9.3 % (2-11); NEUTROPHILS 74.3 % (40-80); PLATELET COUNT 314 10x3/uL (130-400); RBC 3.45 10x6/uL (4.00-5.40); RDW 16.7 % (11.5-14.5); WBC 23.9 10x3/uL (4.8-10.8)
[2017-09-23 04:58] LABS: ALBUMIN 1.1 g/dL (3.4-5.0); ANION GAP 16.5 mmol/L (8-16); BILIRUBIN - TOTAL 0.7 mg/dL (0.2-1.3); CARBON DIOXIDE 24.7 mmol/L (21.0-32.0); CREATININE - SERUM 4.7 mg/dL (0.6-1.3); MAGNESIUM - SERUM 1.5 mg/dL (1.8-2.4); PHOSPHOROUS 4.7 mg/dL (2.5-4.9); POTASSIUM - SERUM 4.2 mmol/L (3.5-5.1); PROTEIN - SERUM 3.5 g/dL (6.4-8.2); VANCOMYCIN - RANDOM 34.6 ug/mL (10.0-20.0)
[2017-09-23 04:59] LABS: CALCIUM 6.5 mg/dL (8.5-10.1)
[2017-09-24] VITALS (82 sets, daily range): BP systolic 82–135; BP diastolic 41–97
[2017-09-24 04:53] LABS: BASOPHILS 0.1 % (0-2); EOSINOPHILS 0.4 % (0-7); HEMATOCRIT 25.4 % (36.0-48.0); HEMOGLOBIN 8.3 g/dL (12-16); IMMATURE GRANULOCYTES 0.5 % (0-5); MCH 26.4 pg (26.0-34.0); MCHC 32.7 g/dL (31.0-37.0); MEAN PLATELET VOLUME 11.3 fL (7.4-10.4); MONOCYTES 7.6 % (2-11); NEUTROPHILS 72.4 % (40-80); RBC 3.14 10x6/uL (4.00-5.40); RDW 16.7 % (11.5-14.5)
[2017-09-24 04:55] LABS: MCV 80.9 fL (80.0-100.0); PLATELET COUNT 212 10x3/uL (130-400); WBC 17.7 10x3/uL (4.8-10.8)
[2017-09-24 05:19] LABS: ANION GAP 12.8 mmol/L (8-16); CARBON DIOXIDE 30.6 mmol/L (21.0-32.0); MAGNESIUM - SERUM 1.6 mg/dL (1.8-2.4); PHOSPHOROUS 4.6 mg/dL (2.5-4.9); TROPONIN-I 0.018 ng/mL (0.000-0.060); VANCOMYCIN - RANDOM 33.6 ug/mL (10.0-20.0)
[2017-09-24 05:20] LABS: CREATININE - SERUM 6.2 mg/dL (0.6-1.3); POTASSIUM - SERUM 3.4 mmol/L (3.5-5.1)
[2017-09-25] VITALS (24 sets, daily range): BP systolic 94–136; BP diastolic 47–81
[2017-09-25 04:26] LABS: BASOPHILS 0.1 % (0-2); EOSINOPHILS 1.5 % (0-7); HEMATOCRIT 24.6 % (36.0-48.0); HEMOGLOBIN 7.9 g/dL (12-16); IMMATURE GRANULOCYTES 0.8 % (0-5); LYMPHOCYTES 13.7 % (15-50); MCH 26.7 pg (26.0-34.0); MCHC 32.1 g/dL (31.0-37.0); MCV 83.1 fL (80.0-100.0); MONOCYTES 6.6 % (2-11); NEUTROPHILS 77.3 % (40-80); PLATELET COUNT 213 10x3/uL (130-400); RBC 2.96 10x6/uL (4.00-5.40); RDW 17.1 % (11.5-14.5)
[2017-09-25 04:46] LABS: ALBUMIN 1.2 g/dL (3.4-5.0); ANION GAP 15.7 mmol/L (8-16); BILIRUBIN - TOTAL 0.64 mg/dL (0.2-1.3); CALCIUM 7.9 mg/dL (8.5-10.1); CARBON DIOXIDE 29.4 mmol/L (21.0-32.0); CREATININE - SERUM 6.8 mg/dL (0.6-1.3); POTASSIUM - SERUM 4.1 mmol/L (3.5-5.1)
[2017-09-25 04:49] LABS: MAGNESIUM - SERUM 2.2 mg/dL (1.8-2.4); PHOSPHOROUS 5.9 mg/dL (2.5-4.9)
[2017-09-25 11:41] LABS: MAGNESIUM - SERUM 2.2 mg/dL (1.8-2.4)
[2017-09-25 22:56] LABS: APPEARANCE TURBID (CLEAR); BILIRUBIN NEGATIVE (NEGATIVE); COLOR YELLOW (YELLOW); CREATININE - URINE 154.1 mg/dL (30-125); GLUCOSE NEGATIVE (NEGATIVE); KETONE NEGATIVE (NEGATIVE); NITRITE NEGATIVE (NEGATIVE); PROTEIN 1+ mg/dL (NEGATIVE); UROBILINOGEN NORMAL (NORMAL)
[2017-09-25 22:57] LABS: BACTERIA MANY /hpf (NONE SEEN); EPITHELIAL CELLS 0-5 /hpf (0-5); RED CELLS - URINE >50 /hpf (0-5)
[2017-09-25 22:58] LABS: YEAST >1+ /hpf (NONE SEEN)
[2017-09-25 23:01] LABS: PROTEIN - URINE 571.2 mg/dL (0.0-11.9)
[2017-09-26] VITALS (24 sets, daily range): BP systolic 86–122; BP diastolic 38–86
[2017-09-26 05:33] LABS: BASOPHILS 0.1 % (0-2); HEMATOCRIT 25.8 % (36.0-48.0); HEMOGLOBIN 8.2 g/dL (12-16); IMMATURE GRANULOCYTES 2.3 % (0-5); LYMPHOCYTES 11.7 % (15-50); MCH 26.8 pg (26.0-34.0); MCHC 31.8 g/dL (31.0-37.0); MCV 84.3 fL (80.0-100.0); MEAN PLATELET VOLUME 11.4 fL (7.4-10.4); MONOCYTES 6.4 % (2-11); NEUTROPHILS 77.5 % (40-80); PLATELET COUNT 211 10x3/uL (130-400); RBC 3.06 10x6/uL (4.00-5.40); RDW 16.7 % (11.5-14.5); WBC 24.4 10x3/uL (4.8-10.8)
[2017-09-26 05:45] LABS: ALBUMIN 1.2 g/dL (3.4-5.0); ANION GAP 14.7 mmol/L (8-16); BILIRUBIN - TOTAL 0.5 mg/dL (0.2-1.3); CALCIUM 8.2 mg/dL (8.5-10.1); CARBON DIOXIDE 29.2 mmol/L (21.0-32.0); CREATININE - SERUM 5.5 mg/dL (0.6-1.3); POTASSIUM - SERUM 3.9 mmol/L (3.5-5.1); PROTEIN - SERUM 4.9 g/dL (6.4-8.2)
[2017-09-26 09:17] LABS: ANA REFLEX - DIRECT Negative (Negative)
[2017-09-26 12:17] LABS: HEPATITIS C ANTIBODY <0.1 (0.0-0.9)
[2017-09-26 13:17] LABS: EHRLICHIA CHAFF IGG Negative (Neg:<1:64); EHRLICHIA CHAFF IGM Negative (Neg:<1:20); HGE IGG TITER Negative (Neg:<1:64); HGE IGM TITER Negative (Neg:<1:20)
[2017-09-26 15:18] LABS: SPE - A/G RATIO 0.6 (0.7-1.7); SPE - ALBUMIN 1.7 g/dL (2.9-4.4); SPE - ALPHA-1 GLOBULIN 0.7 g/dL (0.0-0.4); SPE - ALPHA-2 GLOBULIN 0.9 g/dL (0.4-1.0); SPE - BETA GLOBULIN 0.6 g/dL (0.7-1.3); SPE - GAMMA GLOBULIN 0.5 g/dL (0.4-1.8); SPE - M-SPIKE Not Observed g/dL (Not Observed); SPE - TOTAL PROTEIN 4.4 g/dL (6.0-8.5)
[2017-09-26 19:10] LABS: RMSF IGM 0.63 index (0.00-0.89)
[2017-09-26 20:08] LABS: AFB SPECIMEN PROCESSING Concentration (())
[2017-09-27] VITALS (24 sets, daily range): BP systolic 86–144; BP diastolic 36–95
[2017-09-27 03:55] LABS: BASOPHILS 0.2 % (0-2); EOSINOPHILS 1.6 % (0-7); HEMATOCRIT 25.7 % (36.0-48.0); HEMOGLOBIN 8.1 g/dL (12-16); IMMATURE GRANULOCYTES 5.6 % (0-5); LYMPHOCYTES 10.5 % (15-50); MCH 26.9 pg (26.0-34.0); MCHC 31.5 g/dL (31.0-37.0); MCV 85.4 fL (80.0-100.0); MEAN PLATELET VOLUME 10.5 fL (7.4-10.4); MONOCYTES 7.1 % (2-11); PLATELET COUNT 219 10x3/uL (130-400); RBC 3.01 10x6/uL (4.00-5.40)
[2017-09-27 04:09] LABS: ALBUMIN 1.2 g/dL (3.4-5.0); ANION GAP 15.4 mmol/L (8-16); BILIRUBIN - TOTAL 0.51 mg/dL (0.2-1.3); CARBON DIOXIDE 28.2 mmol/L (21.0-32.0); CREATININE - SERUM 4.2 mg/dL (0.6-1.3); PHOSPHOROUS 4.5 mg/dL (2.5-4.9); POTASSIUM - SERUM 3.6 mmol/L (3.5-5.1); PROTEIN - SERUM 5.1 g/dL (6.4-8.2); VANCOMYCIN - RANDOM 15.2 ug/mL (10.0-20.0)
[2017-09-27 11:19] LABS: FUNGUS STAIN Final report (())
[2017-09-27 16:14] LABS: ANCA - ANTIMYELOPEROXIDASE <9.0 U/mL (0.0-9.0); ANCA - ANTIPROTEINASE 3 <3.5 U/mL (0.0-3.5); ANCA - ATYPICAL <1:20 titer (Neg:<1:20); ANCA - CYTOPLASMIC <1:20 titer (Neg:<1:20); ANCA - PERINUCLEAR <1:20 titer (Neg:<1:20)
[2017-09-28] VITALS (24 sets, daily range): BP systolic 95–134; BP diastolic 38–92
[2017-09-28 04:31] LABS: BASOPHILS 0.2 % (0-2); EOSINOPHILS 1.6 % (0-7); HEMATOCRIT 26.1 % (36.0-48.0); HEMOGLOBIN 8.1 g/dL (12-16); IMMATURE GRANULOCYTES 7.3 % (0-5); LYMPHOCYTES 11.3 % (15-50); MCH 27.1 pg (26.0-34.0); MCV 87.3 fL (80.0-100.0); MEAN PLATELET VOLUME 10.7 fL (7.4-10.4); MONOCYTES 7.4 % (2-11); NEUTROPHILS 72.2 % (40-80); PLATELET COUNT 255 10x3/uL (130-400); RBC 2.99 10x6/uL (4.00-5.40); RDW 17.5 % (11.5-14.5); WBC 23.7 10x3/uL (4.8-10.8)
[2017-09-28 04:48] LABS: INR 1.15 (0.85-1.17); PROTIME 14.6 SECONDS (11.6-15.0)
[2017-09-28 04:49] LABS: APTT 32.6 SECONDS (22.8-39.4)
[2017-09-28 04:56] LABS: ALBUMIN 1.4 g/dL (3.4-5.0); ANION GAP 11.8 mmol/L (8-16); BILIRUBIN - TOTAL 0.6 mg/dL (0.2-1.3); CALCIUM 8.5 mg/dL (8.5-10.1); CARBON DIOXIDE 29.6 mmol/L (21.0-32.0); CREATININE - SERUM 3.7 mg/dL (0.6-1.3); MAGNESIUM - SERUM 2.1 mg/dL (1.8-2.4); PHOSPHOROUS 4.6 mg/dL (2.5-4.9); POTASSIUM - SERUM 3.4 mmol/L (3.5-5.1); PROTEIN - SERUM 5.8 g/dL (6.4-8.2); VANCOMYCIN - RANDOM 18.3 ug/mL (10.0-20.0)
[2017-09-29] VITALS (24 sets, daily range): BP systolic 90–134; BP diastolic 41–91
[2017-09-29 06:22] LABS: BASOPHILS 0.2 % (0-2); EOSINOPHILS 1.7 % (0-7); HEMATOCRIT 26.2 % (36.0-48.0); HEMOGLOBIN 7.8 g/dL (12-16); IMMATURE GRANULOCYTES 6.3 % (0-5); LYMPHOCYTES 10.1 % (15-50); MCH 26.4 pg (26.0-34.0); MCHC 29.8 g/dL (31.0-37.0); MCV 88.8 fL (80.0-100.0); MEAN PLATELET VOLUME 10.7 fL (7.4-10.4); MONOCYTES 7.2 % (2-11); NEUTROPHILS 74.5 % (40-80); PLATELET COUNT 328 10x3/uL (130-400); RBC 2.95 10x6/uL (4.00-5.40); RDW 17.9 % (11.5-14.5); WBC 24.9 10x3/uL (4.8-10.8)
[2017-09-29 07:04] LABS: ALBUMIN 1.7 g/dL (3.4-5.0); ANION GAP 12.8 mmol/L (8-16); BILIRUBIN - TOTAL 0.6 mg/dL (0.2-1.3); CALCIUM 8.6 mg/dL (8.5-10.1); CARBON DIOXIDE 28.4 mmol/L (21.0-32.0); CREATININE - SERUM 3.4 mg/dL (0.6-1.3); MAGNESIUM - SERUM 1.9 mg/dL (1.8-2.4); PHOSPHOROUS 4.2 mg/dL (2.5-4.9); POTASSIUM - SERUM 3.2 mmol/L (3.5-5.1); VANCOMYCIN - RANDOM 16.9 ug/mL (10.0-20.0)
[2017-09-29 07:29] LABS: INR 1.15 (0.85-1.17); PROTIME 14.6 SECONDS (11.6-15.0)
[2017-09-29 07:30] LABS: APTT 34.4 SECONDS (22.8-39.4)
[2017-09-29 11:13] LABS: PROTEIN - BODY FLUID 2.7 G/DL
[2017-09-29 11:28] LABS: MACROPHAGES BF 67 %; NEUT - BF 25 %
[2017-09-30] VITALS (24 sets, daily range): BP systolic 89–161; BP diastolic 2–115
[2017-09-30 04:51] LABS: BASOPHILS 0.2 % (0-2); EOSINOPHILS 1.5 % (0-7); HEMATOCRIT 29.2 % (36.0-48.0); IMMATURE GRANULOCYTES 6.6 % (0-5); LYMPHOCYTES 8.2 % (15-50); MCHC 30.8 g/dL (31.0-37.0); MCV 87.7 fL (80.0-100.0); MEAN PLATELET VOLUME 10.5 fL (7.4-10.4); MONOCYTES 7.7 % (2-11); NEUTROPHILS 75.8 % (40-80); PLATELET COUNT 319 10x3/uL (130-400); RBC 3.33 10x6/uL (4.00-5.40); RDW 16.9 % (11.5-14.5); WBC 24.9 10x3/uL (4.8-10.8)
[2017-09-30 05:13] LABS: ALBUMIN 1.9 g/dL (3.4-5.0); ANION GAP 10.7 mmol/L (8-16); BILIRUBIN - TOTAL 0.91 mg/dL (0.2-1.3); CALCIUM 8.6 mg/dL (8.5-10.1); CARBON DIOXIDE 28.9 mmol/L (21.0-32.0); CREATININE - SERUM 3.3 mg/dL (0.6-1.3); MAGNESIUM - SERUM 2.1 mg/dL (1.8-2.4); PHOSPHOROUS 3.7 mg/dL (2.5-4.9); POTASSIUM - SERUM 3.6 mmol/L (3.5-5.1); PROTEIN - SERUM 6.3 g/dL (6.4-8.2); VANCOMYCIN - RANDOM 18.5 ug/mL (10.0-20.0)
[2017-09-30 19:07] LABS: AFB SPECIMEN PROCESSING Concentration (())
[2017-10-01] VITALS (29 sets, daily range): BP systolic 106–170; BP diastolic 64–999
[2017-10-01 05:14] LABS: BASOPHILS 0.2 % (0-2); EOSINOPHILS 0.7 % (0-7); HEMATOCRIT 31.3 % (36.0-48.0); HEMOGLOBIN 9.4 g/dL (12-16); IMMATURE GRANULOCYTES 5.1 % (0-5); LYMPHOCYTES 6.7 % (15-50); MCH 27.1 pg (26.0-34.0); MCV 90.2 fL (80.0-100.0); MEAN PLATELET VOLUME 10.5 fL (7.4-10.4); MONOCYTES 8.8 % (2-11); NEUTROPHILS 78.5 % (40-80); PLATELET COUNT 367 10x3/uL (130-400); RBC 3.47 10x6/uL (4.00-5.40); RDW 17.8 % (11.5-14.5); WBC 27.1 10x3/uL (4.8-10.8)
[2017-10-01 05:23] LABS: ALBUMIN 2.2 g/dL (3.4-5.0); ANION GAP 11.8 mmol/L (8-16); BILIRUBIN - TOTAL 0.81 mg/dL (0.2-1.3); CALCIUM 9.2 mg/dL (8.5-10.1); CARBON DIOXIDE 29.2 mmol/L (21.0-32.0); CREATININE - SERUM 3.1 mg/dL (0.6-1.3); MAGNESIUM - SERUM 2.1 mg/dL (1.8-2.4); PROTEIN - SERUM 7.1 g/dL (6.4-8.2); VANCOMYCIN - RANDOM 18.1 ug/mL (10.0-20.0)
[2017-10-01 05:25] LABS: PHOSPHOROUS 5.5 mg/dL (2.5-4.9)
[2017-10-02] VITALS (25 sets, daily range): BP systolic 93–140; BP diastolic 46–90
[2017-10-02 03:49] LABS: BASOPHILS 0.2 % (0-2); HEMATOCRIT 30.3 % (36.0-48.0); HEMOGLOBIN 9.1 g/dL (12-16); IMMATURE GRANULOCYTES 5.5 % (0-5); LYMPHOCYTES 8.4 % (15-50); MCH 26.9 pg (26.0-34.0); MCV 89.6 fL (80.0-100.0); MEAN PLATELET VOLUME 9.9 fL (7.4-10.4); MONOCYTES 9.6 % (2-11); NEUTROPHILS 75.3 % (40-80); PLATELET COUNT 362 10x3/uL (130-400); RBC 3.38 10x6/uL (4.00-5.40); RDW 17.8 % (11.5-14.5); WBC 21.8 10x3/uL (4.8-10.8)
[2017-10-02 04:32] LABS: ALBUMIN 2.3 g/dL (3.4-5.0); ANION GAP 14.7 mmol/L (8-16); BILIRUBIN - TOTAL 0.78 mg/dL (0.2-1.3); CALCIUM 8.9 mg/dL (8.5-10.1); CARBON DIOXIDE 27.1 mmol/L (21.0-32.0); MAGNESIUM - SERUM 2.2 mg/dL (1.8-2.4); PHOSPHOROUS 5.4 mg/dL (2.5-4.9); POTASSIUM - SERUM 3.8 mmol/L (3.5-5.1); VANCOMYCIN - RANDOM 24.5 ug/mL (10.0-20.0)
[2017-10-02 04:35] LABS: CREATININE - SERUM 4.1 mg/dL (0.6-1.3)
[2017-10-02 14:11] LABS: FUNGUS CULTURE RESULT 1 Candida glabrata (())
[2017-10-03] VITALS (25 sets, daily range): BP systolic 105–149; BP diastolic 61–102
[2017-10-03 04:49] LABS: BASOPHILS 0.2 % (0-2); EOSINOPHILS 1.2 % (0-7); HEMATOCRIT 30.1 % (36.0-48.0); HEMOGLOBIN 9.1 g/dL (12-16); IMMATURE GRANULOCYTES 4.9 % (0-5); LYMPHOCYTES 9.7 % (15-50); MCHC 30.2 g/dL (31.0-37.0); MCV 89.3 fL (80.0-100.0); MEAN PLATELET VOLUME 10.1 fL (7.4-10.4); MONOCYTES 10.2 % (2-11); NEUTROPHILS 73.8 % (40-80); PLATELET COUNT 432 10x3/uL (130-400); RBC 3.37 10x6/uL (4.00-5.40); WBC 17.7 10x3/uL (4.8-10.8)
[2017-10-03 05:32] LABS: ALBUMIN 2.4 g/dL (3.4-5.0); ANION GAP 14.9 mmol/L (8-16); BILIRUBIN - TOTAL 0.73 mg/dL (0.2-1.3); CALCIUM 8.8 mg/dL (8.5-10.1); CARBON DIOXIDE 27.8 mmol/L (21.0-32.0); CREATININE - SERUM 3.5 mg/dL (0.6-1.3); MAGNESIUM - SERUM 2.3 mg/dL (1.8-2.4); PHOSPHOROUS 3.8 mg/dL (2.5-4.9); POTASSIUM - SERUM 3.7 mmol/L (3.5-5.1); PROTEIN - SERUM 7.2 g/dL (6.4-8.2); VANCOMYCIN - RANDOM 17.9 ug/mL (10.0-20.0)
[2017-10-04] VITALS (26 sets, daily range): BP systolic 109–162; BP diastolic 75–108
[2017-10-04 04:44] LABS: BASOPHILS 0.2 % (0-2); EOSINOPHILS 0.9 % (0-7); HEMATOCRIT 30.3 % (36.0-48.0); HEMOGLOBIN 9.1 g/dL (12-16); IMMATURE GRANULOCYTES 6.3 % (0-5); MCH 26.8 pg (26.0-34.0); MCV 89.4 fL (80.0-100.0); MEAN PLATELET VOLUME 9.8 fL (7.4-10.4); MONOCYTES 9.4 % (2-11); NEUTROPHILS 74.2 % (40-80); PLATELET COUNT 442 10x3/uL (130-400); RBC 3.39 10x6/uL (4.00-5.40); RDW 18.1 % (11.5-14.5); WBC 17.5 10x3/uL (4.8-10.8)
[2017-10-04 05:09] LABS: ALBUMIN 2.5 g/dL (3.4-5.0); ANION GAP 15.3 mmol/L (8-16); BILIRUBIN - TOTAL 0.76 mg/dL (0.2-1.3); CALCIUM 9.1 mg/dL (8.5-10.1); CARBON DIOXIDE 26.5 mmol/L (21.0-32.0); CREATININE - SERUM 3.4 mg/dL (0.6-1.3); MAGNESIUM - SERUM 2.2 mg/dL (1.8-2.4); PHOSPHOROUS 3.6 mg/dL (2.5-4.9); POTASSIUM - SERUM 3.8 mmol/L (3.5-5.1); PROTEIN - SERUM 7.5 g/dL (6.4-8.2); VANCOMYCIN - RANDOM 21.1 ug/mL (10.0-20.0)
[2017-10-04 10:17] LABS: FUNGUS STAIN Final report (())
[2017-10-05] VITALS (27 sets, daily range): BP systolic 117–167; BP diastolic 81–891; Ht 162.6 cm; Wt 159.8 kg
[2017-10-05 05:05] LABS: BASOPHILS 0.2 % (0-2); EOSINOPHILS 0.6 % (0-7); HEMATOCRIT 30.9 % (36.0-48.0); HEMOGLOBIN 9.4 g/dL (12-16); IMMATURE GRANULOCYTES 4.5 % (0-5); LYMPHOCYTES 8.1 % (15-50); MCH 26.9 pg (26.0-34.0); MCHC 30.4 g/dL (31.0-37.0); MCV 88.5 fL (80.0-100.0); MEAN PLATELET VOLUME 9.4 fL (7.4-10.4); MONOCYTES 9.7 % (2-11); NEUTROPHILS 76.9 % (40-80); PLATELET COUNT 448 10x3/uL (130-400); RBC 3.49 10x6/uL (4.00-5.40); WBC 19.9 10x3/uL (4.8-10.8)
[2017-10-05 05:19] LABS: ALBUMIN 2.8 g/dL (3.4-5.0); ANION GAP 15.5 mmol/L (8-16); BILIRUBIN - TOTAL 0.8 mg/dL (0.2-1.3); CALCIUM 9.5 mg/dL (8.5-10.1); CREATININE - SERUM 3.3 mg/dL (0.6-1.3); MAGNESIUM - SERUM 2.1 mg/dL (1.8-2.4); PHOSPHOROUS 3.3 mg/dL (2.5-4.9); POTASSIUM - SERUM 3.5 mmol/L (3.5-5.1); PROTEIN - SERUM 7.6 g/dL (6.4-8.2); VANCOMYCIN - RANDOM 15.9 ug/mL (10.0-20.0)
[2017-10-05 10:18] LABS: F. TULARENSIS - IGG Negative (()); F. TULARENSIS - IGM Negative (())
[2017-10-06] VITALS (24 sets, daily range): BP systolic 128–157; BP diastolic 72–103
[2017-10-06 04:50] LABS: BASOPHILS 0.3 % (0-2); EOSINOPHILS 0.7 % (0-7); HEMATOCRIT 31.4 % (36.0-48.0); HEMOGLOBIN 9.5 g/dL (12-16); IMMATURE GRANULOCYTES 2.6 % (0-5); LYMPHOCYTES 9.1 % (15-50); MCHC 30.3 g/dL (31.0-37.0); MCV 89.2 fL (80.0-100.0); MEAN PLATELET VOLUME 9.5 fL (7.4-10.4); NEUTROPHILS 76.3 % (40-80); PLATELET COUNT 456 10x3/uL (130-400); RBC 3.52 10x6/uL (4.00-5.40); RDW 18.4 % (11.5-14.5); WBC 18.9 10x3/uL (4.8-10.8)
[2017-10-06 05:05] LABS: ALBUMIN 3.1 g/dL (3.4-5.0); ANION GAP 16.6 mmol/L (8-16); BILIRUBIN - TOTAL 0.88 mg/dL (0.2-1.3); CALCIUM 9.4 mg/dL (8.5-10.1); CARBON DIOXIDE 25.9 mmol/L (21.0-32.0); MAGNESIUM - SERUM 2.4 mg/dL (1.8-2.4); POTASSIUM - SERUM 3.5 mmol/L (3.5-5.1); PROTEIN - SERUM 8.1 g/dL (6.4-8.2)
[2017-10-07] VITALS (24 sets, daily range): BP systolic 104–159; BP diastolic 68–106
[2017-10-07 03:46] LABS: BASOPHILS 0.4 % (0-2); EOSINOPHILS 0.8 % (0-7); HEMATOCRIT 30.8 % (36.0-48.0); HEMOGLOBIN 9.3 g/dL (12-16); IMMATURE GRANULOCYTES 1.4 % (0-5); MCH 26.8 pg (26.0-34.0); MCHC 30.2 g/dL (31.0-37.0); MCV 88.8 fL (80.0-100.0); MEAN PLATELET VOLUME 9.5 fL (7.4-10.4); MONOCYTES 8.9 % (2-11); NEUTROPHILS 77.5 % (40-80); PLATELET COUNT 437 10x3/uL (130-400); RBC 3.47 10x6/uL (4.00-5.40); RDW 18.2 % (11.5-14.5); WBC 16.6 10x3/uL (4.8-10.8)
[2017-10-07 04:04] LABS: ALBUMIN 3.2 g/dL (3.4-5.0); ANION GAP 16.7 mmol/L (8-16); BILIRUBIN - TOTAL 0.85 mg/dL (0.2-1.3); CALCIUM 9.4 mg/dL (8.5-10.1); CARBON DIOXIDE 27.5 mmol/L (21.0-32.0); CREATININE - SERUM 2.6 mg/dL (0.6-1.3); MAGNESIUM - SERUM 2.2 mg/dL (1.8-2.4); PHOSPHOROUS 2.8 mg/dL (2.5-4.9); POTASSIUM - SERUM 3.2 mmol/L (3.5-5.1); PROTEIN - SERUM 8.4 g/dL (6.4-8.2); VANCOMYCIN - RANDOM 18.1 ug/mL (10.0-20.0)
[2017-10-08] VITALS (24 sets, daily range): BP systolic 72–146; BP diastolic 49–92
[2017-10-08 05:31] LABS: BASOPHILS 0.6 % (0-2); HEMATOCRIT 29.4 % (36.0-48.0); HEMOGLOBIN 8.9 g/dL (12-16); IMMATURE GRANULOCYTES 1.3 % (0-5); LYMPHOCYTES 11.9 % (15-50); MCH 26.7 pg (26.0-34.0); MCHC 30.3 g/dL (31.0-37.0); MCV 88.3 fL (80.0-100.0); MEAN PLATELET VOLUME 9.4 fL (7.4-10.4); MONOCYTES 9.6 % (2-11); NEUTROPHILS 75.6 % (40-80); PLATELET COUNT 416 10x3/uL (130-400); RBC 3.33 10x6/uL (4.00-5.40); RDW 18.1 % (11.5-14.5); WBC 14.4 10x3/uL (4.8-10.8)
[2017-10-08 06:15] LABS: ANION GAP 18.1 mmol/L (8-16); CALCIUM 9.9 mg/dL (8.5-10.1); CARBON DIOXIDE 25.1 mmol/L (21.0-32.0); MAGNESIUM - SERUM 2.4 mg/dL (1.8-2.4); POTASSIUM - SERUM 4.2 mmol/L (3.5-5.1); VANCOMYCIN - RANDOM 17.2 ug/mL (10.0-20.0)
[2017-10-08 06:17] LABS: CREATININE - SERUM 4.5 mg/dL (0.6-1.3); PHOSPHOROUS 4.7 mg/dL (2.5-4.9)
[2017-10-09] VITALS (24 sets, daily range): BP systolic 109–152; BP diastolic 74–99
[2017-10-09 05:24] LABS: BASOPHILS 0.4 % (0-2); EOSINOPHILS 1.1 % (0-7); HEMATOCRIT 28.5 % (36.0-48.0); HEMOGLOBIN 8.8 g/dL (12-16); LYMPHOCYTES 10.8 % (15-50); MCH 27.1 pg (26.0-34.0); MCHC 30.9 g/dL (31.0-37.0); MCV 87.7 fL (80.0-100.0); MEAN PLATELET VOLUME 9.2 fL (7.4-10.4); NEUTROPHILS 77.7 % (40-80); PLATELET COUNT 370 10x3/uL (130-400); RBC 3.25 10x6/uL (4.00-5.40); WBC 15.9 10x3/uL (4.8-10.8)
[2017-10-09 05:48] LABS: ANION GAP 16.4 mmol/L (8-16); CALCIUM 9.6 mg/dL (8.5-10.1); POTASSIUM - SERUM 4.4 mmol/L (3.5-5.1); VANCOMYCIN - RANDOM 15.8 ug/mL (10.0-20.0)
[2017-10-09 05:50] LABS: CREATININE - SERUM 5.9 mg/dL (0.6-1.3)
[2017-10-10] VITALS (24 sets, daily range): BP systolic 86–147; BP diastolic 49–108
[2017-10-10 05:02] LABS: BASOPHILS 0.3 % (0-2); EOSINOPHILS 0.9 % (0-7); HEMATOCRIT 29.8 % (36.0-48.0); HEMOGLOBIN 9.3 g/dL (12-16); IMMATURE GRANULOCYTES 0.9 % (0-5); MCH 27.3 pg (26.0-34.0); MCHC 31.2 g/dL (31.0-37.0); MCV 87.4 fL (80.0-100.0); MEAN PLATELET VOLUME 9.3 fL (7.4-10.4); MONOCYTES 9.6 % (2-11); NEUTROPHILS 79.3 % (40-80); PLATELET COUNT 352 10x3/uL (130-400); RBC 3.41 10x6/uL (4.00-5.40); RDW 17.9 % (11.5-14.5); WBC 15.2 10x3/uL (4.8-10.8)
[2017-10-10 05:18] LABS: ANION GAP 17.9 mmol/L (8-16); CALCIUM 9.9 mg/dL (8.5-10.1); CARBON DIOXIDE 25.2 mmol/L (21.0-32.0); POTASSIUM - SERUM 4.1 mmol/L (3.5-5.1)
[2017-10-10 05:33] LABS: CREATININE - SERUM 4.4 mg/dL (0.6-1.3)
[2017-10-11] VITALS (16 sets, daily range): BP systolic 93–133; BP diastolic 50–83
[2017-10-11 04:16] LABS: BASOPHILS 0.2 % (0-2); EOSINOPHILS 1.1 % (0-7); HEMATOCRIT 32.7 % (36.0-48.0); HEMOGLOBIN 10.4 g/dL (12-16); IMMATURE GRANULOCYTES 1.1 % (0-5); LYMPHOCYTES 11.4 % (15-50); MCH 27.5 pg (26.0-34.0); MCHC 31.8 g/dL (31.0-37.0); MCV 86.5 fL (80.0-100.0); MEAN PLATELET VOLUME 9.5 fL (7.4-10.4); MONOCYTES 11.9 % (2-11); NEUTROPHILS 74.3 % (40-80); PLATELET COUNT 415 10x3/uL (130-400); RBC 3.78 10x6/uL (4.00-5.40); RDW 17.8 % (11.5-14.5)
[2017-10-11 04:17] LABS: WBC 19.6 10x3/uL (4.8-10.8)
[2017-10-11 04:34] LABS: ANION GAP 21.5 mmol/L (8-16); CALCIUM 10.4 mg/dL (8.5-10.1); CARBON DIOXIDE 21.9 mmol/L (21.0-32.0); MAGNESIUM - SERUM 2.7 mg/dL (1.8-2.4); PHOSPHOROUS 4.9 mg/dL (2.5-4.9); POTASSIUM - SERUM 4.4 mmol/L (3.5-5.1)
[2017-10-11 04:37] LABS: CREATININE - SERUM 5.9 mg/dL (0.6-1.3)
[2017-10-12] VITALS: BP 96/57
[2017-10-12 04:00] VITALS: BP 109/59
[2017-10-12 06:07] LABS: HEMATOCRIT 33.2 % (36.0-48.0); HEMOGLOBIN 10.7 g/dL (12-16); MCH 27.5 pg (26.0-34.0); MCHC 32.2 g/dL (31.0-37.0); MCV 85.3 fL (80.0-100.0); MEAN PLATELET VOLUME 9.5 fL (7.4-10.4); PLATELET COUNT 417 10x3/uL (130-400); RBC 3.89 10x6/uL (4.00-5.40); RDW 17.7 % (11.5-14.5); WBC 20.2 10x3/uL (4.8-10.8)
[2017-10-12 06:35] LABS: CALCIUM 10.6 mg/dL (8.5-10.1); CARBON DIOXIDE 19.1 mmol/L (21.0-32.0)
[2017-10-12 06:36] LABS: CREATININE - SERUM 7.6 mg/dL (0.6-1.3)
[2017-10-12 06:37] LABS: ANION GAP 24.4 mmol/L (8-16); POTASSIUM - SERUM 5.5 mmol/L (3.5-5.1)
[2017-10-12 07:16] LABS: EOSINOPHILS 1 % (0-7); LYMPHOCYTES 8 % (15-50); MONOCYTES 9 % (2-11); NEUTROPHILS 74 % (40-80); PLATELET ESTIMATE NORMAL
[2017-10-12 07:17] LABS: ROULEAUX 1+
[2017-10-12 08:38] VITALS: BP 114/75
[2017-10-12 15:52] VITALS: BP 99/49
[2017-10-12 21:49] VITALS: BP 114/69
[2017-10-13 05:24] VITALS: BP 154/82
[2017-10-13 05:38] LABS: BASOPHILS 0.2 % (0-2); EOSINOPHILS 0.6 % (0-7); HEMOGLOBIN 10.1 g/dL (12-16); IMMATURE GRANULOCYTES 1.1 % (0-5); LYMPHOCYTES 11.4 % (15-50); MCH 27.2 pg (26.0-34.0); MCHC 31.6 g/dL (31.0-37.0); MEAN PLATELET VOLUME 9.3 fL (7.4-10.4); NEUTROPHILS 73.7 % (40-80); PLATELET COUNT 371 10x3/uL (130-400); RBC 3.72 10x6/uL (4.00-5.40); RDW 17.9 % (11.5-14.5); WBC 17.3 10x3/uL (4.8-10.8)
[2017-10-13 06:02] LABS: ANION GAP 21.5 mmol/L (8-16); CALCIUM 9.9 mg/dL (8.5-10.1); CARBON DIOXIDE 21.8 mmol/L (21.0-32.0); CREATININE - SERUM 5.1 mg/dL (0.6-1.3); POTASSIUM - SERUM 4.3 mmol/L (3.5-5.1)
[2017-10-13 08:26] VITALS: BP 99/54
[2017-10-13 13:03] VITALS: BP 118/43
[2017-10-13 15:44] VITALS: BP 119/56
[2017-10-13 20:00] VITALS: BP 89/63
[2017-10-14] VITALS: BP 100/57
[2017-10-14 04:00] VITALS: BP 118/56
[2017-10-14 04:42] LABS: BASOPHILS 0.3 % (0-2); EOSINOPHILS 0.8 % (0-7); HEMATOCRIT 29.3 % (36.0-48.0); HEMOGLOBIN 9.3 g/dL (12-16); IMMATURE GRANULOCYTES 1.4 % (0-5); LYMPHOCYTES 12.8 % (15-50); MCH 27.4 pg (26.0-34.0); MCHC 31.7 g/dL (31.0-37.0); MCV 86.2 fL (80.0-100.0); MEAN PLATELET VOLUME 9.4 fL (7.4-10.4); MONOCYTES 13.5 % (2-11); NEUTROPHILS 71.2 % (40-80); PLATELET COUNT 412 10x3/uL (130-400); WBC 16.6 10x3/uL (4.8-10.8)
[2017-10-14 05:06] LABS: ANION GAP 21.9 mmol/L (8-16); CALCIUM 9.9 mg/dL (8.5-10.1); CARBON DIOXIDE 18.8 mmol/L (21.0-32.0); CREATININE - SERUM 6.4 mg/dL (0.6-1.3); POTASSIUM - SERUM 4.7 mmol/L (3.5-5.1)
[2017-10-14 10:52] VITALS: BP 98/45
[2017-10-14 11:09] VITALS: BP 126/81
[2017-10-14 12:53] VITALS: BP 96/49
[2017-10-14 20:00] VITALS: BP 109/56
[2017-10-15] VITALS: BP 92/45
[2017-10-15 04:00] VITALS: BP 112/50
[2017-10-15 05:24] LABS: BASOPHILS 0.2 % (0-2); EOSINOPHILS 0.7 % (0-7); HEMATOCRIT 29.3 % (36.0-48.0); HEMOGLOBIN 9.2 g/dL (12-16); IMMATURE GRANULOCYTES 1.3 % (0-5); LYMPHOCYTES 9.1 % (15-50); MCH 27.1 pg (26.0-34.0); MCHC 31.4 g/dL (31.0-37.0); MCV 86.4 fL (80.0-100.0); MEAN PLATELET VOLUME 9.1 fL (7.4-10.4); MONOCYTES 14.3 % (2-11); NEUTROPHILS 74.4 % (40-80); PLATELET COUNT 338 10x3/uL (130-400); RBC 3.39 10x6/uL (4.00-5.40); RDW 18.6 % (11.5-14.5); WBC 14.2 10x3/uL (4.8-10.8)
[2017-10-15 05:36] LABS: CALCIUM 9.5 mg/dL (8.5-10.1); POTASSIUM - SERUM 4.3 mmol/L (3.5-5.1)
[2017-10-15 05:37] LABS: CARBON DIOXIDE 24.3 mmol/L (21.0-32.0)
[2017-10-15 11:04] VITALS: BP 88/48
[2017-10-15 13:32] VITALS: BP 102/43
[2017-10-15 20:00] VITALS: BP 94/47
[2017-10-16 04:00] VITALS: BP 98/54
[2017-10-16 05:07] LABS: BASOPHILS 0.2 % (0-2); EOSINOPHILS 1.9 % (0-7); HEMATOCRIT 29.1 % (36.0-48.0); IMMATURE GRANULOCYTES 1.5 % (0-5); LYMPHOCYTES 10.9 % (15-50); MCH 26.6 pg (26.0-34.0); MCHC 30.9 g/dL (31.0-37.0); MCV 86.1 fL (80.0-100.0); MEAN PLATELET VOLUME 9.5 fL (7.4-10.4); MONOCYTES 13.7 % (2-11); NEUTROPHILS 71.8 % (40-80); PLATELET COUNT 368 10x3/uL (130-400); RBC 3.38 10x6/uL (4.00-5.40); RDW 18.6 % (11.5-14.5); WBC 12.5 10x3/uL (4.8-10.8)
[2017-10-16 05:12] LABS: ANION GAP 17.8 mmol/L (8-16); CALCIUM 9.6 mg/dL (8.5-10.1); CARBON DIOXIDE 23.8 mmol/L (21.0-32.0); POTASSIUM - SERUM 4.6 mmol/L (3.5-5.1)
[2017-10-16 05:13] LABS: CREATININE - SERUM 6.3 mg/dL (0.6-1.3)
[2017-10-16 09:33] VITALS: BP 91/47
[2017-10-16 13:03] VITALS: BP 80/42
[2017-10-16 16:32] VITALS: BP 82/43
[2017-10-16 20:00] VITALS: BP 96/54
[2017-10-17 04:00] VITALS: BP 107/59
[2017-10-17 05:15] LABS: BASOPHILS 0.2 % (0-2); EOSINOPHILS 1.3 % (0-7); HEMATOCRIT 27.3 % (36.0-48.0); HEMOGLOBIN 8.6 g/dL (12-16); IMMATURE GRANULOCYTES 1.8 % (0-5); LYMPHOCYTES 12.2 % (15-50); MCH 27.1 pg (26.0-34.0); MCHC 31.5 g/dL (31.0-37.0); MCV 86.1 fL (80.0-100.0); MEAN PLATELET VOLUME 9.5 fL (7.4-10.4); MONOCYTES 14.2 % (2-11); NEUTROPHILS 70.3 % (40-80); PLATELET COUNT 358 10x3/uL (130-400); RBC 3.17 10x6/uL (4.00-5.40); RDW 18.7 % (11.5-14.5); WBC 13.6 10x3/uL (4.8-10.8)
[2017-10-17 05:37] LABS: ANION GAP 18.9 mmol/L (8-16); CALCIUM 8.7 mg/dL (8.5-10.1); CARBON DIOXIDE 20.2 mmol/L (21.0-32.0); CREATININE - SERUM 7.4 mg/dL (0.6-1.3); POTASSIUM - SERUM 5.1 mmol/L (3.5-5.1)
[2017-10-17 07:55] VITALS: BP 94/55
[2017-10-17 12:24] VITALS: BP 78/43
[2017-10-17 15:34] VITALS: BP 90/38
[2017-10-17 23:44] VITALS: BP 89/32
[2017-10-18 04:24] VITALS: BP 72/35
[2017-10-18 08:20] VITALS: BP 82/48
[2017-10-18 12:17] VITALS: BP 81/43
[2017-10-18 13:33] LABS: BASOPHILS 0.5 % (0-2); HEMATOCRIT 27.7 % (36.0-48.0); HEMOGLOBIN 8.6 g/dL (12-16); LYMPHOCYTES 15.4 % (15-50); MCV 87.1 fL (80.0-100.0); MEAN PLATELET VOLUME 8.8 fL (7.4-10.4); MONOCYTES 16.3 % (2-11); NEUTROPHILS 62.8 % (40-80); PLATELET COUNT 308 10x3/uL (130-400); RBC 3.18 10x6/uL (4.00-5.40); WBC 14.6 10x3/uL (4.8-10.8)
[2017-10-18 13:41] LABS: ANION GAP 12.8 mmol/L (8-16); CALCIUM 8.9 mg/dL (8.5-10.1); CARBON DIOXIDE 25.3 mmol/L (21.0-32.0); CREATININE - SERUM 5.4 mg/dL (0.6-1.3); MAGNESIUM - SERUM 2.3 mg/dL (1.8-2.4); POTASSIUM - SERUM 4.1 mmol/L (3.5-5.1)
[2017-10-18 17:02] VITALS: BP 112/53
[2017-10-18 21:03] VITALS: BP 84/44
[2017-10-19 00:37] VITALS: BP 80/39
[2017-10-19 05:00] VITALS: BP 82/40
[2017-10-19 05:43] LABS: BASOPHILS 0.3 % (0-2); EOSINOPHILS 1.1 % (0-7); HEMATOCRIT 27.3 % (36.0-48.0); HEMOGLOBIN 8.5 g/dL (12-16); IMMATURE GRANULOCYTES 5.5 % (0-5); LYMPHOCYTES 13.4 % (15-50); MCHC 31.1 g/dL (31.0-37.0); MCV 86.7 fL (80.0-100.0); MEAN PLATELET VOLUME 9.3 fL (7.4-10.4); MONOCYTES 13.1 % (2-11); NEUTROPHILS 66.6 % (40-80); PLATELET COUNT 350 10x3/uL (130-400); RBC 3.15 10x6/uL (4.00-5.40); WBC 14.9 10x3/uL (4.8-10.8)
[2017-10-19 06:24] LABS: ALBUMIN 2.1 g/dL (3.4-5.0); ANION GAP 17.3 mmol/L (8-16); BILIRUBIN - TOTAL 0.5 mg/dL (0.2-1.3); CALCIUM 9.5 mg/dL (8.5-10.1); CARBON DIOXIDE 22.4 mmol/L (21.0-32.0); CREATININE - SERUM 6.3 mg/dL (0.6-1.3); POTASSIUM - SERUM 4.7 mmol/L (3.5-5.1); PROTEIN - SERUM 7.7 g/dL (6.4-8.2)
[2017-10-19 08:22] VITALS: BP 80/47
[2017-10-19 11:53] VITALS: BP 100/44
[2017-10-19 16:19] VITALS: BP 142/52
[2017-10-19 20:00] VITALS: BP 102/53
[2017-10-20] VITALS (7 sets, daily range): BP systolic 83–103; BP diastolic 43–62
[2017-10-20 06:32] LABS: BASOPHILS 0.1 % (0-2); EOSINOPHILS 0.1 % (0-7); HEMATOCRIT 27.1 % (36.0-48.0); HEMOGLOBIN 8.7 g/dL (12-16); IMMATURE GRANULOCYTES 3.6 % (0-5); LYMPHOCYTES 8.2 % (15-50); MCH 27.3 pg (26.0-34.0); MCHC 32.1 g/dL (31.0-37.0); MEAN PLATELET VOLUME 9.1 fL (7.4-10.4); MONOCYTES 9.8 % (2-11); NEUTROPHILS 78.2 % (40-80); PLATELET COUNT 332 10x3/uL (130-400); RBC 3.19 10x6/uL (4.00-5.40); RDW 18.5 % (11.5-14.5); WBC 18.8 10x3/uL (4.8-10.8)
[2017-10-20 06:56] LABS: ALBUMIN 2.1 g/dL (3.4-5.0); BILIRUBIN - TOTAL 0.54 mg/dL (0.2-1.3); CALCIUM 9.4 mg/dL (8.5-10.1); CARBON DIOXIDE 21.2 mmol/L (21.0-32.0); CREATININE - SERUM 7.4 mg/dL (0.6-1.3); PROTEIN - SERUM 7.8 g/dL (6.4-8.2)
[2017-10-20 07:11] LABS: ANION GAP 17.5 mmol/L (8-16); POTASSIUM - SERUM 5.7 mmol/L (3.5-5.1)
[2017-10-20 09:39] LABS: INR 1.36 (0.85-1.17); PROTIME 16.3 SECONDS (11.6-15.0)
[2017-10-20 09:48] LABS: MAGNESIUM - SERUM 3.3 mg/dL (1.8-2.4)
[2017-10-21 06:50] LABS: BASOPHILS 0.1 % (0-2); EOSINOPHILS 0 % (0-7); HEMOGLOBIN 8.8 g/dL (12-16); IMMATURE GRANULOCYTES 3.5 % (0-5); LYMPHOCYTES 7.7 % (15-50); MCH 27.2 pg (26.0-34.0); MCHC 31.4 g/dL (31.0-37.0); MCV 86.4 fL (80.0-100.0); MONOCYTES 7.5 % (2-11); NEUTROPHILS 81.2 % (40-80); PLATELET COUNT 308 10x3/uL (130-400); RBC 3.24 10x6/uL (4.00-5.40); RDW 19.2 % (11.5-14.5); WBC 19.9 10x3/uL (4.8-10.8)
[2017-10-21 07:24] LABS: ALBUMIN 1.9 g/dL (3.4-5.0); BILIRUBIN - TOTAL 0.5 mg/dL (0.2-1.3); CALCIUM 9.2 mg/dL (8.5-10.1); CARBON DIOXIDE 22.7 mmol/L (21.0-32.0); CREATININE - SERUM 5.5 mg/dL (0.6-1.3); MAGNESIUM - SERUM 2.7 mg/dL (1.8-2.4); PHOSPHOROUS 4.2 mg/dL (2.5-4.9); PROTEIN - SERUM 7.8 g/dL (6.4-8.2)
[2017-10-21 07:25] LABS: ANION GAP 17.6 mmol/L (8-16); POTASSIUM - SERUM 4.3 mmol/L (3.5-5.1)
[2017-10-21 08:56] VITALS: BP 90/46
[2017-10-21 11:54] VITALS: BP 89/44
[2017-10-21 20:00] VITALS: BP 119/54
[2017-10-22] VITALS: BP 95/44
[2017-10-22 04:00] VITALS: BP 100/40
[2017-10-22 06:23] LABS: BASOPHILS 0.2 % (0-2); EOSINOPHILS 0.2 % (0-7); HEMATOCRIT 29.3 % (36.0-48.0); HEMOGLOBIN 9.1 g/dL (12-16); IMMATURE GRANULOCYTES 4.6 % (0-5); MCH 27.2 pg (26.0-34.0); MCHC 31.1 g/dL (31.0-37.0); MCV 87.7 fL (80.0-100.0); MEAN PLATELET VOLUME 9.1 fL (7.4-10.4); MONOCYTES 10.8 % (2-11); NEUTROPHILS 74.2 % (40-80); PLATELET COUNT 303 10x3/uL (130-400); RBC 3.34 10x6/uL (4.00-5.40); RDW 19.4 % (11.5-14.5); WBC 17.9 10x3/uL (4.8-10.8)
[2017-10-22 07:14] LABS: ALBUMIN 1.8 g/dL (3.4-5.0); ANION GAP 14.3 mmol/L (8-16); BILIRUBIN - TOTAL 0.5 mg/dL (0.2-1.3); CALCIUM 9.3 mg/dL (8.5-10.1); CARBON DIOXIDE 26.1 mmol/L (21.0-32.0); MAGNESIUM - SERUM 2.1 mg/dL (1.8-2.4)
[2017-10-22 07:16] LABS: PHOSPHOROUS 2.6 mg/dL (2.5-4.9); POTASSIUM - SERUM 3.4 mmol/L (3.5-5.1)
[2017-10-22 08:51] VITALS: BP 88/57
[2017-10-22 12:45] VITALS: BP 104/44
[2017-10-22 16:16] VITALS: BP 88/47
[2017-10-22 20:00] VITALS: BP 138/57
[2017-10-23] VITALS: BP 131/59
[2017-10-23 05:46] LABS: BASOPHILS 0.2 % (0-2); EOSINOPHILS 0.2 % (0-7); HEMATOCRIT 28.2 % (36.0-48.0); HEMOGLOBIN 8.6 g/dL (12-16); IMMATURE GRANULOCYTES 4.8 % (0-5); LYMPHOCYTES 10.9 % (15-50); MCHC 30.5 g/dL (31.0-37.0); MCV 88.4 fL (80.0-100.0); MEAN PLATELET VOLUME 9.1 fL (7.4-10.4); MONOCYTES 8.7 % (2-11); NEUTROPHILS 75.2 % (40-80); PLATELET COUNT 316 10x3/uL (130-400); RBC 3.19 10x6/uL (4.00-5.40); RDW 19.4 % (11.5-14.5); WBC 19.6 10x3/uL (4.8-10.8)
[2017-10-23 06:05] LABS: ALBUMIN 1.7 g/dL (3.4-5.0); ANION GAP 17.7 mmol/L (8-16); BILIRUBIN - TOTAL 0.5 mg/dL (0.2-1.3); CALCIUM 9.5 mg/dL (8.5-10.1); CARBON DIOXIDE 23.2 mmol/L (21.0-32.0); MAGNESIUM - SERUM 2.3 mg/dL (1.8-2.4); POTASSIUM - SERUM 3.9 mmol/L (3.5-5.1)
[2017-10-23 06:11] LABS: CREATININE - SERUM 5.3 mg/dL (0.6-1.3); PHOSPHOROUS 3.4 mg/dL (2.5-4.9)
[2017-10-23 07:46] VITALS: BP 92/57
[2017-10-23 08:09] LABS: FUNGUS MYCOLOGY CULTURE Final report (())
[2017-10-23 11:59] VITALS: BP 114/54
[2017-10-23 16:07] VITALS: BP 129/79
[2017-10-23 17:43] VITALS: BP 114/69
[2017-10-24 05:00] VITALS: BP 92/57
[2017-10-24 07:06] LABS: BASOPHILS 0.2 % (0-2); EOSINOPHILS 0.6 % (0-7); IMMATURE GRANULOCYTES 4.6 % (0-5); LYMPHOCYTES 8.2 % (15-50); MCH 27.2 pg (26.0-34.0); MCHC 30.7 g/dL (31.0-37.0); MCV 88.6 fL (80.0-100.0); MEAN PLATELET VOLUME 9.8 fL (7.4-10.4); MONOCYTES 6.5 % (2-11); NEUTROPHILS 79.9 % (40-80); PLATELET COUNT 281 10x3/uL (130-400); RDW 18.9 % (11.5-14.5); WBC 19.6 10x3/uL (4.8-10.8)
[2017-10-24 07:15] LABS: ALBUMIN 1.8 g/dL (3.4-5.0); ANION GAP 18.5 mmol/L (8-16); BILIRUBIN - TOTAL 0.7 mg/dL (0.2-1.3); CALCIUM 9.8 mg/dL (8.5-10.1); CARBON DIOXIDE 21.2 mmol/L (21.0-32.0); MAGNESIUM - SERUM 2.4 mg/dL (1.8-2.4); POTASSIUM - SERUM 3.7 mmol/L (3.5-5.1)
[2017-10-24 07:17] LABS: CREATININE - SERUM 6.7 mg/dL (0.6-1.3); PHOSPHOROUS 4.4 mg/dL (2.5-4.9)
[2017-10-24 07:21] LABS: HEMATOCRIT 34.9 % (36.0-48.0); HEMOGLOBIN 10.7 g/dL (12-16); RBC 3.94 10x6/uL (4.00-5.40)
[2017-10-24 08:34] VITALS: BP 109/59
[2017-10-24 16:07] VITALS: BP 101/69
[2017-10-24 20:00] VITALS: BP 109/66
[2017-10-25] VITALS: BP 126/76
[2017-10-25 04:00] VITALS: BP 106/70
[2017-10-25 05:56] LABS: BASOPHILS 0.1 % (0-2); EOSINOPHILS 0.1 % (0-7); IMMATURE GRANULOCYTES 3.8 % (0-5); LYMPHOCYTES 7.3 % (15-50); MCH 26.7 pg (26.0-34.0); MCHC 30.3 g/dL (31.0-37.0); MCV 87.9 fL (80.0-100.0); MEAN PLATELET VOLUME 9.3 fL (7.4-10.4); MONOCYTES 4.4 % (2-11); NEUTROPHILS 84.3 % (40-80); PLATELET COUNT 236 10x3/uL (130-400); RDW 19.1 % (11.5-14.5)
[2017-10-25 06:12] LABS: HEMATOCRIT 27.7 % (36.0-48.0); HEMOGLOBIN 8.4 g/dL (12-16); RBC 3.15 10x6/uL (4.00-5.40)
[2017-10-25 06:15] LABS: ALBUMIN 1.7 g/dL (3.4-5.0); ANION GAP 14.9 mmol/L (8-16); BILIRUBIN - TOTAL 0.53 mg/dL (0.2-1.3); CALCIUM 9.4 mg/dL (8.5-10.1); CARBON DIOXIDE 25.6 mmol/L (21.0-32.0); MAGNESIUM - SERUM 2.2 mg/dL (1.8-2.4); PHOSPHOROUS 3.3 mg/dL (2.5-4.9); POTASSIUM - SERUM 3.5 mmol/L (3.5-5.1); PROTEIN - SERUM 7.8 g/dL (6.4-8.2)
[2017-10-25 06:21] LABS: CREATININE - SERUM 4.5 mg/dL (0.6-1.3)
[2017-10-25 09:13] VITALS: BP 112/71
[2017-10-25 12:33] VITALS: BP 115/77
[2017-10-25 16:47] VITALS: BP 116/70
[2017-10-25 20:00] VITALS: BP 131/90
[2017-10-26] VITALS: BP 121/85
[2017-10-26 06:52] VITALS: BP 148/92
[2017-10-26 08:11] LABS: BASOPHILS 0.1 % (0-2); EOSINOPHILS 0.3 % (0-7); HEMATOCRIT 26.5 % (36.0-48.0); HEMOGLOBIN 8.3 g/dL (12-16); IMMATURE GRANULOCYTES 2.4 % (0-5); LYMPHOCYTES 11.4 % (15-50); MCH 26.9 pg (26.0-34.0); MCHC 31.3 g/dL (31.0-37.0); MONOCYTES 4.1 % (2-11); NEUTROPHILS 81.7 % (40-80); PLATELET COUNT 246 10x3/uL (130-400); RBC 3.08 10x6/uL (4.00-5.40); RDW 18.3 % (11.5-14.5); WBC 15.9 10x3/uL (4.8-10.8)
[2017-10-26 08:32] LABS: ALBUMIN 1.6 g/dL (3.4-5.0); ANION GAP 17.4 mmol/L (8-16); BILIRUBIN - TOTAL 0.58 mg/dL (0.2-1.3); CALCIUM 9.6 mg/dL (8.5-10.1); CARBON DIOXIDE 23.1 mmol/L (21.0-32.0); MAGNESIUM - SERUM 2.2 mg/dL (1.8-2.4); POTASSIUM - SERUM 3.5 mmol/L (3.5-5.1); PROTEIN - SERUM 7.6 g/dL (6.4-8.2)
[2017-10-26 08:33] LABS: CREATININE - SERUM 5.8 mg/dL (0.6-1.3); PHOSPHOROUS 5.1 mg/dL (2.5-4.9)
[2017-10-26 09:45] VITALS: BP 138/80
[2017-10-26 16:41] VITALS: BP 129/72
[2017-10-26 20:00] VITALS: BP 133/78
[2017-10-27] VITALS (7 sets, daily range): BP systolic 103–140; BP diastolic 54–72
[2017-10-27 05:34] LABS: BASOPHILS 0.2 % (0-2); EOSINOPHILS 0.5 % (0-7); HEMATOCRIT 28.9 % (36.0-48.0); HEMOGLOBIN 9.1 g/dL (12-16); IMMATURE GRANULOCYTES 1.6 % (0-5); LYMPHOCYTES 9.1 % (15-50); MCH 27.6 pg (26.0-34.0); MCHC 31.5 g/dL (31.0-37.0); MCV 87.6 fL (80.0-100.0); MEAN PLATELET VOLUME 9.8 fL (7.4-10.4); NEUTROPHILS 83.6 % (40-80); RDW 18.5 % (11.5-14.5); WBC 13.3 10x3/uL (4.8-10.8)
[2017-10-27 05:36] LABS: PLATELET COUNT 327 10x3/uL (130-400)
[2017-10-27 05:41] LABS: ALBUMIN 1.6 g/dL (3.4-5.0); ANION GAP 14.8 mmol/L (8-16); BILIRUBIN - TOTAL 0.59 mg/dL (0.2-1.3); CALCIUM 9.8 mg/dL (8.5-10.1); CARBON DIOXIDE 26.6 mmol/L (21.0-32.0); CREATININE - SERUM 4.5 mg/dL (0.6-1.3); MAGNESIUM - SERUM 2.3 mg/dL (1.8-2.4); PHOSPHOROUS 3.9 mg/dL (2.5-4.9); POTASSIUM - SERUM 3.4 mmol/L (3.5-5.1); PROTEIN - SERUM 7.9 g/dL (6.4-8.2)
[2017-10-28 03:49] VITALS: BP 112/60
[2017-10-28 06:25] LABS: BASOPHILS 0.1 % (0-2); EOSINOPHILS 0.4 % (0-7); HEMATOCRIT 28.7 % (36.0-48.0); HEMOGLOBIN 8.7 g/dL (12-16); IMMATURE GRANULOCYTES 1.1 % (0-5); LYMPHOCYTES 11.2 % (15-50); MCH 26.6 pg (26.0-34.0); MCHC 30.3 g/dL (31.0-37.0); MCV 87.8 fL (80.0-100.0); MEAN PLATELET VOLUME 9.6 fL (7.4-10.4); MONOCYTES 5.7 % (2-11); NEUTROPHILS 81.5 % (40-80); PLATELET COUNT 347 10x3/uL (130-400); RBC 3.27 10x6/uL (4.00-5.40); RDW 18.7 % (11.5-14.5); WBC 15.9 10x3/uL (4.8-10.8)
[2017-10-28 06:58] LABS: ALBUMIN 1.5 g/dL (3.4-5.0); ANION GAP 17.9 mmol/L (8-16); BILIRUBIN - TOTAL 0.51 mg/dL (0.2-1.3); CALCIUM 10.3 mg/dL (8.5-10.1); CARBON DIOXIDE 22.5 mmol/L (21.0-32.0); PROTEIN - SERUM 7.9 g/dL (6.4-8.2)
[2017-10-28 06:59] LABS: CREATININE - SERUM 5.9 mg/dL (0.6-1.3); POTASSIUM - SERUM 4.4 mmol/L (3.5-5.1)
[2017-10-28 09:26] VITALS: BP 124/51
[2017-10-28 12:19] VITALS: BP 114/71
[2017-10-28 20:00] VITALS: BP 115/52
[2017-10-29] VITALS: BP 98/68
[2017-10-29 06:29] VITALS: BP 129/72
[2017-10-29 06:39] LABS: BASOPHILS 0.1 % (0-2); EOSINOPHILS 0.3 % (0-7); HEMATOCRIT 28.5 % (36.0-48.0); HEMOGLOBIN 8.6 g/dL (12-16); LYMPHOCYTES 10.2 % (15-50); MCH 26.7 pg (26.0-34.0); MCHC 30.2 g/dL (31.0-37.0); MCV 88.5 fL (80.0-100.0); MEAN PLATELET VOLUME 9.6 fL (7.4-10.4); MONOCYTES 6.5 % (2-11); NEUTROPHILS 81.9 % (40-80); PLATELET COUNT 357 10x3/uL (130-400); RBC 3.22 10x6/uL (4.00-5.40); RDW 18.8 % (11.5-14.5); WBC 15.5 10x3/uL (4.8-10.8)
[2017-10-29 06:57] LABS: ANION GAP 14.8 mmol/L (8-16); CALCIUM 9.3 mg/dL (8.5-10.1); CARBON DIOXIDE 25.3 mmol/L (21.0-32.0); CREATININE - SERUM 4.5 mg/dL (0.6-1.3); PHOSPHOROUS 4.3 mg/dL (2.5-4.9); POTASSIUM - SERUM 4.1 mmol/L (3.5-5.1)
[2017-10-29 08:27] VITALS: BP 122/81
[2017-10-29 11:41] VITALS: BP 99/53
[2017-10-29 15:39] VITALS: BP 112/49
[2017-10-29 20:00] VITALS: BP 103/62
[2017-10-30] VITALS: BP 105/57
[2017-10-30 04:00] VITALS: BP 159/91
[2017-10-30 06:07] LABS: BASOPHILS 0.2 % (0-2); EOSINOPHILS 0.2 % (0-7); HEMATOCRIT 28.6 % (36.0-48.0); HEMOGLOBIN 8.6 g/dL (12-16); MCH 26.4 pg (26.0-34.0); MCHC 30.1 g/dL (31.0-37.0); MCV 87.7 fL (80.0-100.0); MEAN PLATELET VOLUME 9.2 fL (7.4-10.4); MONOCYTES 6.9 % (2-11); NEUTROPHILS 79.7 % (40-80); PLATELET COUNT 397 10x3/uL (130-400); RBC 3.26 10x6/uL (4.00-5.40); RDW 18.9 % (11.5-14.5); WBC 14.6 10x3/uL (4.8-10.8)
[2017-10-30 06:07] LABS: FUNGUS MYCOLOGY CULTURE Final report (())
[2017-10-30 06:26] LABS: ANION GAP 17.8 mmol/L (8-16); CALCIUM 10.2 mg/dL (8.5-10.1); CARBON DIOXIDE 24.7 mmol/L (21.0-32.0); POTASSIUM - SERUM 4.5 mmol/L (3.5-5.1)
[2017-10-30 06:28] LABS: CREATININE - SERUM 6.1 mg/dL (0.6-1.3); PHOSPHOROUS 5.8 mg/dL (2.5-4.9)
[2017-10-30 09:26] VITALS: BP 114/72
[2017-10-30 20:00] VITALS: BP 91/70
[2017-10-31 04:00] VITALS: BP 115/72
[2017-10-31 05:37] LABS: BASOPHILS 0.2 % (0-2); EOSINOPHILS 0.3 % (0-7); HEMATOCRIT 28.6 % (36.0-48.0); HEMOGLOBIN 8.6 g/dL (12-16); IMMATURE GRANULOCYTES 1.1 % (0-5); LYMPHOCYTES 14.9 % (15-50); MCH 26.5 pg (26.0-34.0); MCHC 30.1 g/dL (31.0-37.0); MONOCYTES 7.5 % (2-11); PLATELET COUNT 353 10x3/uL (130-400); RBC 3.25 10x6/uL (4.00-5.40); RDW 18.7 % (11.5-14.5); WBC 13.7 10x3/uL (4.8-10.8)
[2017-10-31 05:49] LABS: ANION GAP 17.7 mmol/L (8-16); CALCIUM 10.2 mg/dL (8.5-10.1); CARBON DIOXIDE 25.1 mmol/L (21.0-32.0)
[2017-10-31 05:52] LABS: CREATININE - SERUM 4.2 mg/dL (0.6-1.3); PHOSPHOROUS 3.7 mg/dL (2.5-4.9); POTASSIUM - SERUM 3.8 mmol/L (3.5-5.1)
[2017-10-31 09:36] VITALS: BP 103/58
[2017-10-31 12:49] VITALS: BP 105/61
[2017-10-31 16:35] VITALS: BP 110/69
[2017-11-01] VITALS (11 sets, daily range): BP systolic 97–113; BP diastolic 48–67
[2017-11-01 05:53] LABS: BASOPHILS 0.1 % (0-2); EOSINOPHILS 0.7 % (0-7); HEMATOCRIT 27.9 % (36.0-48.0); HEMOGLOBIN 8.6 g/dL (12-16); IMMATURE GRANULOCYTES 1.1 % (0-5); LYMPHOCYTES 12.9 % (15-50); MCH 26.9 pg (26.0-34.0); MCHC 30.8 g/dL (31.0-37.0); MCV 87.2 fL (80.0-100.0); MEAN PLATELET VOLUME 9.3 fL (7.4-10.4); MONOCYTES 7.6 % (2-11); NEUTROPHILS 77.6 % (40-80); PLATELET COUNT 394 10x3/uL (130-400); RDW 18.5 % (11.5-14.5); WBC 16.2 10x3/uL (4.8-10.8)
[2017-11-01 06:12] LABS: ANION GAP 16.3 mmol/L (8-16); CALCIUM 10.1 mg/dL (8.5-10.1); CARBON DIOXIDE 25.1 mmol/L (21.0-32.0); PHOSPHOROUS 4.1 mg/dL (2.5-4.9)
[2017-11-01 06:17] LABS: CREATININE - SERUM 5.4 mg/dL (0.6-1.3); POTASSIUM - SERUM 4.4 mmol/L (3.5-5.1)
[2017-11-01 08:15] LABS: INR 1.36 (0.85-1.17); PROTIME 16.3 SECONDS (11.6-15.0)
[2017-11-02 04:00] VITALS: BP 95/55
[2017-11-02 06:11] LABS: BASOPHILS 0.1 % (0-2); EOSINOPHILS 0.2 % (0-7); HEMATOCRIT 26.9 % (36.0-48.0); HEMOGLOBIN 8.1 g/dL (12-16); IMMATURE GRANULOCYTES 0.9 % (0-5); LYMPHOCYTES 12.2 % (15-50); MCHC 30.1 g/dL (31.0-37.0); MEAN PLATELET VOLUME 9.1 fL (7.4-10.4); MONOCYTES 7.9 % (2-11); NEUTROPHILS 78.7 % (40-80); RDW 18.9 % (11.5-14.5); WBC 15.6 10x3/uL (4.8-10.8)
[2017-11-02 06:14] LABS: MCV 89.7 fL (80.0-100.0); PLATELET COUNT 312 10x3/uL (130-400)
[2017-11-02 06:26] LABS: ANION GAP 12.5 mmol/L (8-16); CALCIUM 9.4 mg/dL (8.5-10.1); CARBON DIOXIDE 26.7 mmol/L (21.0-32.0)
[2017-11-02 06:29] LABS: CREATININE - SERUM 3.8 mg/dL (0.6-1.3); PHOSPHOROUS 2.7 mg/dL (2.5-4.9); POTASSIUM - SERUM 3.2 mmol/L (3.5-5.1)
[2017-11-02 07:58] VITALS: BP 97/57
[2017-11-02 12:02] VITALS: BP 136/65
[2017-11-02 16:14] VITALS: BP 95/38
[2017-11-03] VITALS: BP 101/35
[2017-11-03 04:00] VITALS: BP 95/53
[2017-11-03 07:14] LABS: ANION GAP 13.5 mmol/L (8-16); CARBON DIOXIDE 24.1 mmol/L (21.0-32.0); MAGNESIUM - SERUM 2.3 mg/dL (1.8-2.4); POTASSIUM - SERUM 3.6 mmol/L (3.5-5.1)
[2017-11-03 07:20] LABS: PHOSPHOROUS 1.9 mg/dL (2.5-4.9)
[2017-11-03 08:21] VITALS: BP 112/53
[2017-11-03 14:17] LABS: FUNGUS STAIN Final report (())
[2017-11-03 16:09] VITALS: BP 128/107
[2017-11-03 16:32] VITALS: BP 95/50
[2017-11-03 21:43] VITALS: BP 106/56
[2017-11-04 01:06] VITALS: BP 103/54
[2017-11-04 06:54] LABS: BASOPHILS 0.2 % (0-2); EOSINOPHILS 0.6 % (0-7); HEMATOCRIT 26.9 % (36.0-48.0); IMMATURE GRANULOCYTES 1.5 % (0-5); LYMPHOCYTES 13.1 % (15-50); MCH 26.6 pg (26.0-34.0); MCHC 29.7 g/dL (31.0-37.0); MCV 89.4 fL (80.0-100.0); MEAN PLATELET VOLUME 9.5 fL (7.4-10.4); MONOCYTES 7.9 % (2-11); NEUTROPHILS 76.7 % (40-80); PLATELET COUNT 282 10x3/uL (130-400); RBC 3.01 10x6/uL (4.00-5.40); RDW 19.5 % (11.5-14.5); WBC 14.9 10x3/uL (4.8-10.8)
[2017-11-04 07:01] LABS: ANION GAP 11.6 mmol/L (8-16); CALCIUM 9.5 mg/dL (8.5-10.1); CARBON DIOXIDE 29.5 mmol/L (21.0-32.0); MAGNESIUM - SERUM 1.9 mg/dL (1.8-2.4); POTASSIUM - SERUM 3.1 mmol/L (3.5-5.1); VANCOMYCIN - RANDOM 14.4 ug/mL (10.0-20.0)
[2017-11-04 07:15] LABS: CREATININE - SERUM 3.4 mg/dL (0.6-1.3); PHOSPHOROUS 1.3 mg/dL (2.5-4.9)
[2017-11-04 08:45] VITALS: BP 107/41
[2017-11-04 12:45] VITALS: BP 95/56
[2017-11-04 17:29] VITALS: BP 106/57
[2017-11-05] VITALS: BP 105/64
[2017-11-05 04:00] VITALS: BP 82/51
[2017-11-05 07:03] LABS: BASOPHILS 0.1 % (0-2); EOSINOPHILS 0.8 % (0-7); HEMATOCRIT 26.4 % (36.0-48.0); IMMATURE GRANULOCYTES 1.6 % (0-5); LYMPHOCYTES 14.6 % (15-50); MCH 26.8 pg (26.0-34.0); MCHC 30.3 g/dL (31.0-37.0); MCV 88.3 fL (80.0-100.0); MEAN PLATELET VOLUME 9.3 fL (7.4-10.4); MONOCYTES 6.7 % (2-11); NEUTROPHILS 76.2 % (40-80); PLATELET COUNT 261 10x3/uL (130-400); RBC 2.99 10x6/uL (4.00-5.40); WBC 14.3 10x3/uL (4.8-10.8)
[2017-11-05 07:21] LABS: ANION GAP 13.7 mmol/L (8-16); CALCIUM 9.7 mg/dL (8.5-10.1); CARBON DIOXIDE 25.5 mmol/L (21.0-32.0); MAGNESIUM - SERUM 1.9 mg/dL (1.8-2.4); POTASSIUM - SERUM 3.2 mmol/L (3.5-5.1)
[2017-11-05 07:25] LABS: CREATININE - SERUM 4.7 mg/dL (0.6-1.3); PHOSPHOROUS 1.1 mg/dL (2.5-4.9)
[2017-11-05 10:47] VITALS: BP 97/52
[2017-11-05 17:00] VITALS: BP 83/49
[2017-11-05 22:16] VITALS: BP 96/49
[2017-11-06 01:22] VITALS: BP 105/44
[2017-11-06 05:19] VITALS: BP 79/43
[2017-11-06 07:34] LABS: BASOPHILS 0.2 % (0-2); EOSINOPHILS 0.6 % (0-7); HEMATOCRIT 25.2 % (36.0-48.0); HEMOGLOBIN 7.6 g/dL (12-16); IMMATURE GRANULOCYTES 2.3 % (0-5); LYMPHOCYTES 11.3 % (15-50); MCH 26.6 pg (26.0-34.0); MCHC 30.2 g/dL (31.0-37.0); MCV 88.1 fL (80.0-100.0); MEAN PLATELET VOLUME 9.4 fL (7.4-10.4); NEUTROPHILS 78.6 % (40-80); PLATELET COUNT 289 10x3/uL (130-400); RBC 2.86 10x6/uL (4.00-5.40); RDW 20.2 % (11.5-14.5); WBC 16.6 10x3/uL (4.8-10.8)
[2017-11-06 08:02] LABS: ANION GAP 16.7 mmol/L (8-16); CARBON DIOXIDE 20.5 mmol/L (21.0-32.0); POTASSIUM - SERUM 3.2 mmol/L (3.5-5.1)
[2017-11-06 08:19] LABS: CREATININE - SERUM 5.7 mg/dL (0.6-1.3); MAGNESIUM - SERUM 1.9 mg/dL (1.8-2.4)
[2017-11-06 08:34] VITALS: BP 80/42
[2017-11-06 16:07] LABS: AEROBE ID Final report (()); RESULT 1 Escherichia coli (())
[2017-11-06 16:51] VITALS: BP 104/46
[2017-11-06 22:17] VITALS: BP 78/46
[2017-11-07] VITALS (42 sets, daily range): BP systolic 75–117; BP diastolic 24–86
[2017-11-07 06:02] LABS: BASOPHILS 0.2 % (0-2); EOSINOPHILS 0.7 % (0-7); HEMATOCRIT 23.6 % (36.0-48.0); IMMATURE GRANULOCYTES 2.5 % (0-5); LYMPHOCYTES 11.7 % (15-50); MCH 26.9 pg (26.0-34.0); MCHC 30.9 g/dL (31.0-37.0); MCV 87.1 fL (80.0-100.0); MEAN PLATELET VOLUME 9.3 fL (7.4-10.4); MONOCYTES 7.7 % (2-11); NEUTROPHILS 77.2 % (40-80); PLATELET COUNT 254 10x3/uL (130-400); RBC 2.71 10x6/uL (4.00-5.40); RDW 20.6 % (11.5-14.5); WBC 14.6 10x3/uL (4.8-10.8)
[2017-11-07 06:14] LABS: HEMOGLOBIN 7.3 g/dL (12-16)
[2017-11-07 06:26] LABS: CALCIUM 9.5 mg/dL (8.5-10.1); CREATININE - SERUM 4.9 mg/dL (0.6-1.3)
[2017-11-07 06:27] LABS: ANION GAP 13.6 mmol/L (8-16); CARBON DIOXIDE 26.3 mmol/L (21.0-32.0); MAGNESIUM - SERUM 2.8 mg/dL (1.8-2.4)
[2017-11-07 06:29] LABS: POTASSIUM - SERUM 2.9 mmol/L (3.5-5.1)
[2017-11-07 16:55] LABS: HEMOGLOBIN 8.9 g/dL (12-16); MCHC 31.8 g/dL (31.0-37.0); MCV 88.1 fL (80.0-100.0); MEAN PLATELET VOLUME 9.6 fL (7.4-10.4); PLATELET COUNT 292 10x3/uL (130-400); RBC 3.18 10x6/uL (4.00-5.40); RDW 18.9 % (11.5-14.5); WBC 30.8 10x3/uL (4.8-10.8)
[2017-11-07 17:10] LABS: ALBUMIN 0.8 g/dL (3.4-5.0); ANION GAP 17.1 mmol/L (8-16); BILIRUBIN - TOTAL 0.43 mg/dL (0.2-1.3); CALCIUM 8.5 mg/dL (8.5-10.1); CARBON DIOXIDE 24.3 mmol/L (21.0-32.0); CREATININE - SERUM 4.5 mg/dL (0.6-1.3); PROTEIN - SERUM 5.6 g/dL (6.4-8.2)
[2017-11-07 17:15] LABS: POTASSIUM - SERUM 3.4 mmol/L (3.5-5.1)
[2017-11-07 17:21] LABS: LYMPHOCYTES 8 % (15-50); MONOCYTES 1 % (2-11); NEUTROPHILS 42 % (40-80); PLATELET ESTIMATE NORMAL
[2017-11-07 17:22] LABS: ANISOCYTOSIS OCC; POLYCHROMASIA OCC
[2017-11-07 23:25] LABS: APPEARANCE CLOUDY (CLEAR); BILIRUBIN NEGATIVE (NEGATIVE); COLOR BROWN (YELLOW); GLUCOSE NEGATIVE (NEGATIVE); KETONE NEGATIVE (NEGATIVE); NITRITE NEGATIVE (NEGATIVE); PROTEIN 3+ mg/dL (NEGATIVE); UROBILINOGEN NORMAL (NORMAL)
[2017-11-07 23:29] LABS: AMORPHOUS SEDIMENT >1+ /lpf (NONE SEEN); BACTERIA MANY /hpf (NONE SEEN); EPITHELIAL CELLS 0-5 /hpf (0-5); MUCUS <1+ /lpf (NONE SEEN); RED CELLS - URINE 0-5 /hpf (0-5); YEAST >1+ /hpf (NONE SEEN)
[2017-11-08] VITALS (94 sets, daily range): BP systolic 82–141; BP diastolic 25–77
[2017-11-08 06:30] LABS: HEMATOCRIT 23.9 % (36.0-48.0); HEMOGLOBIN 7.8 g/dL (12-16); MCH 28.3 pg (26.0-34.0); MCHC 32.6 g/dL (31.0-37.0); MCV 86.6 fL (80.0-100.0); MEAN PLATELET VOLUME 9.9 fL (7.4-10.4); PLATELET COUNT 215 10x3/uL (130-400); RBC 2.76 10x6/uL (4.00-5.40); RDW 19.4 % (11.5-14.5); WBC 26.2 10x3/uL (4.8-10.8)
[2017-11-08 06:52] LABS: ALBUMIN 0.8 g/dL (3.4-5.0); ANION GAP 17.6 mmol/L (8-16); BILIRUBIN - DIRECT 0.18 mg/dL (0.00-0.30); BILIRUBIN - INDIRECT 0.17 mg/dL (0.00-1.00); BILIRUBIN - TOTAL 0.35 mg/dL (0.2-1.3); CALCIUM 7.5 mg/dL (8.5-10.1); CARBON DIOXIDE 19.8 mmol/L (21.0-32.0); CREATININE - SERUM 4.8 mg/dL (0.6-1.3); MAGNESIUM - SERUM 2.2 mg/dL (1.8-2.4); POTASSIUM - SERUM 3.4 mmol/L (3.5-5.1); PROTEIN - SERUM 4.7 g/dL (6.4-8.2); VANCOMYCIN - RANDOM 21.8 ug/mL (10.0-20.0)
[2017-11-08 06:54] LABS: PHOSPHOROUS 3.2 mg/dL (2.5-4.9)
[2017-11-08 07:35] LABS: ANISOCYTOSIS OCC; CRENATED CELLS 1+; EOSINOPHILS 1 % (0-7); HYPOCHROMASIA OCC; LYMPHOCYTES 12 % (15-50); MONOCYTES 9 % (2-11); NEUTROPHILS 54 % (40-80); PLATELET ESTIMATE NORMAL
[2017-11-08 13:55] LABS: INR 1.42 (0.85-1.17); PROTIME 16.9 SECONDS (11.6-15.0)
[2017-11-09] VITALS (89 sets, daily range): BP systolic 85–129; BP diastolic 44–77
[2017-11-09 06:47] LABS: BASOPHILS 0.3 % (0-2); EOSINOPHILS 0.1 % (0-7); HEMATOCRIT 26.6 % (36.0-48.0); HEMOGLOBIN 8.8 g/dL (12-16); LYMPHOCYTES 12.3 % (15-50); MCHC 33.1 g/dL (31.0-37.0); MCV 84.7 fL (80.0-100.0); MEAN PLATELET VOLUME 9.6 fL (7.4-10.4); MONOCYTES 6.5 % (2-11); NEUTROPHILS 77.8 % (40-80); RBC 3.14 10x6/uL (4.00-5.40); RDW 19.4 % (11.5-14.5)
[2017-11-09 06:53] LABS: PLATELET COUNT 129 10x3/uL (130-400)
[2017-11-09 07:24] LABS: ALBUMIN 0.8 g/dL (3.4-5.0); ANION GAP 17.5 mmol/L (8-16); BILIRUBIN - DIRECT 0.16 mg/dL (0.00-0.30); BILIRUBIN - INDIRECT 0.14 mg/dL (0.00-1.00); BILIRUBIN - TOTAL 0.3 mg/dL (0.2-1.3); CALCIUM 8.5 mg/dL (8.5-10.1); CARBON DIOXIDE 17.2 mmol/L (21.0-32.0); CREATININE - SERUM 5.1 mg/dL (0.6-1.3); MAGNESIUM - SERUM 2.3 mg/dL (1.8-2.4); PHOSPHOROUS 2.7 mg/dL (2.5-4.9); POTASSIUM - SERUM 3.7 mmol/L (3.5-5.1); PROTEIN - SERUM 5.2 g/dL (6.4-8.2); VANCOMYCIN - RANDOM 18.6 ug/mL (10.0-20.0)
[2017-11-10] VITALS (94 sets, daily range): BP systolic 89–120; BP diastolic 48–94
[2017-11-10 06:21] LABS: APTT 34.2 SECONDS (22.8-39.4); INR 1.33 (0.85-1.17)
[2017-11-10 06:26] LABS: ANION GAP 13.6 mmol/L (8-16); CALCIUM 8.5 mg/dL (8.5-10.1); MAGNESIUM - SERUM 1.8 mg/dL (1.8-2.4); POTASSIUM - SERUM 3.4 mmol/L (3.5-5.1); VANCOMYCIN - RANDOM 29.7 ug/mL (10.0-20.0)
[2017-11-10 06:30] LABS: CARBON DIOXIDE 22.8 mmol/L (21.0-32.0); CREATININE - SERUM 3.6 mg/dL (0.6-1.3)
[2017-11-10 11:13] LABS: BASOPHILS 0.1 % (0-2); EOSINOPHILS 0 % (0-7); HEMOGLOBIN 8.2 g/dL (12-16); IMMATURE GRANULOCYTES 2.8 % (0-5); LYMPHOCYTES 11.4 % (15-50); MCH 27.4 pg (26.0-34.0); MCHC 31.5 g/dL (31.0-37.0); MEAN PLATELET VOLUME 10.7 fL (7.4-10.4); MONOCYTES 1.5 % (2-11); NEUTROPHILS 84.2 % (40-80); PLATELET COUNT 107 10x3/uL (130-400); RBC 2.99 10x6/uL (4.00-5.40); RDW 19.6 % (11.5-14.5); WBC 16.4 10x3/uL (4.8-10.8)
[2017-11-11] VITALS (103 sets, daily range): BP systolic 85–147; BP diastolic 51–81
[2017-11-11 05:05] LABS: BASOPHILS 0.1 % (0-2); EOSINOPHILS 0 % (0-7); HEMATOCRIT 25.2 % (36.0-48.0); HEMOGLOBIN 8.1 g/dL (12-16); IMMATURE GRANULOCYTES 1.2 % (0-5); LYMPHOCYTES 9.5 % (15-50); MCHC 32.1 g/dL (31.0-37.0); MCV 87.2 fL (80.0-100.0); MEAN PLATELET VOLUME 10.5 fL (7.4-10.4); MONOCYTES 2.1 % (2-11); NEUTROPHILS 87.1 % (40-80); PLATELET COUNT 97 10x3/uL (130-400); RBC 2.89 10x6/uL (4.00-5.40); RDW 19.4 % (11.5-14.5); WBC 15.4 10x3/uL (4.8-10.8)
[2017-11-11 05:41] LABS: INR 1.34 (0.85-1.17); PROTIME 16.1 SECONDS (11.6-15.0)
[2017-11-11 05:45] LABS: ALBUMIN 0.8 g/dL (3.4-5.0); ANION GAP 15.4 mmol/L (8-16); BILIRUBIN - TOTAL 0.3 mg/dL (0.2-1.3); CALCIUM 8.6 mg/dL (8.5-10.1); CARBON DIOXIDE 19.8 mmol/L (21.0-32.0); CREATININE - SERUM 3.6 mg/dL (0.6-1.3); MAGNESIUM - SERUM 1.7 mg/dL (1.8-2.4); PHOSPHOROUS 2.5 mg/dL (2.5-4.9); POTASSIUM - SERUM 3.2 mmol/L (3.5-5.1); PROTEIN - SERUM 5.9 g/dL (6.4-8.2)
[2017-11-11 18:08] LABS: FUNGUS CULTURE RESULT 1 Candida glabrata (()); FUNGUS MYCOLOGY CULTURE Final report (())
[2017-11-12] VITALS (102 sets, daily range): BP systolic 81–118; BP diastolic 44–76
[2017-11-12 04:06] LABS: BASOPHILS 0.1 % (0-2); EOSINOPHILS 0.1 % (0-7); HEMATOCRIT 25.2 % (36.0-48.0); IMMATURE GRANULOCYTES 1.3 % (0-5); LYMPHOCYTES 8.1 % (15-50); MCH 28.2 pg (26.0-34.0); MCHC 31.7 g/dL (31.0-37.0); MCV 88.7 fL (80.0-100.0); MEAN PLATELET VOLUME 10.3 fL (7.4-10.4); MONOCYTES 2.5 % (2-11); NEUTROPHILS 87.9 % (40-80); PLATELET COUNT 103 10x3/uL (130-400); RBC 2.84 10x6/uL (4.00-5.40); RDW 19.5 % (11.5-14.5); WBC 16.8 10x3/uL (4.8-10.8)
[2017-11-12 04:21] LABS: APTT 30.4 SECONDS (22.8-39.4); INR 1.2 (0.85-1.17); PROTIME 14.8 SECONDS (11.6-15.0)
[2017-11-12 04:22] LABS: ALBUMIN 0.9 g/dL (3.4-5.0); ANION GAP 14.4 mmol/L (8-16); BILIRUBIN - TOTAL 0.3 mg/dL (0.2-1.3); CALCIUM 8.3 mg/dL (8.5-10.1); CARBON DIOXIDE 20.3 mmol/L (21.0-32.0); MAGNESIUM - SERUM 1.6 mg/dL (1.8-2.4); PHOSPHOROUS 2.3 mg/dL (2.5-4.9); PROTEIN - SERUM 5.8 g/dL (6.4-8.2); VANCOMYCIN - RANDOM 17.9 ug/mL (10.0-20.0)
[2017-11-12 04:23] LABS: POTASSIUM - SERUM 3.7 mmol/L (3.5-5.1)
[2017-11-13] VITALS (86 sets, daily range): BP systolic 87–119; BP diastolic 48–73
[2017-11-13 06:34] LABS: % SATURATION 23 % (15-55); IRON 29 ug/dl (35-150); TOTAL IRON BIND CAPACITY 121 ug/dl (260-445); UNSAT IRON BIND CAPACITY 92 ug/dl (150-375)
[2017-11-13 06:36] LABS: BASOPHILS 0.1 % (0-2); EOSINOPHILS 0 % (0-7); HEMATOCRIT 24.9 % (36.0-48.0); HEMOGLOBIN 7.8 g/dL (12-16); IMMATURE GRANULOCYTES 1.1 % (0-5); LYMPHOCYTES 9.9 % (15-50); MCH 27.9 pg (26.0-34.0); MCHC 31.3 g/dL (31.0-37.0); MCV 88.9 fL (80.0-100.0); MEAN PLATELET VOLUME 10.9 fL (7.4-10.4); MONOCYTES 3.1 % (2-11); NEUTROPHILS 85.8 % (40-80); RDW 19.8 % (11.5-14.5); WBC 14.1 10x3/uL (4.8-10.8)
[2017-11-13 06:41] LABS: INR 1.18 (0.85-1.17); PROTIME 14.5 SECONDS (11.6-15.0)
[2017-11-13 06:45] LABS: PLATELET COUNT 142 10x3/uL (130-400)
[2017-11-13 06:53] LABS: ALBUMIN 0.9 g/dL (3.4-5.0); ANION GAP 17.6 mmol/L (8-16); BILIRUBIN - TOTAL 0.3 mg/dL (0.2-1.3); CALCIUM 8.6 mg/dL (8.5-10.1); CARBON DIOXIDE 15.5 mmol/L (21.0-32.0); CREATININE - SERUM 3.2 mg/dL (0.6-1.3); POTASSIUM - SERUM 4.1 mmol/L (3.5-5.1); PROTEIN - SERUM 5.8 g/dL (6.4-8.2); VANCOMYCIN - RANDOM 16.6 ug/mL (10.0-20.0)
[2017-11-13 06:57] LABS: MAGNESIUM - SERUM 2.4 mg/dL (1.8-2.4); PHOSPHOROUS 4.1 mg/dL (2.5-4.9)
[2017-11-14] VITALS (92 sets, daily range): BP systolic 72–129; BP diastolic 10–68
[2017-11-14 05:14] LABS: BASOPHILS 0.1 % (0-2); EOSINOPHILS 0 % (0-7); HEMATOCRIT 27.9 % (36.0-48.0); HEMOGLOBIN 8.7 g/dL (12-16); IMMATURE GRANULOCYTES 1.3 % (0-5); LYMPHOCYTES 6.1 % (15-50); MCH 28.1 pg (26.0-34.0); MCHC 31.2 g/dL (31.0-37.0); MONOCYTES 2.1 % (2-11); NEUTROPHILS 90.4 % (40-80); PLATELET COUNT 147 10x3/uL (130-400); WBC 16.5 10x3/uL (4.8-10.8)
[2017-11-14 05:43] LABS: INR 1.19 (0.85-1.17); PROTIME 14.7 SECONDS (11.6-15.0)
[2017-11-14 05:45] LABS: KETONE - SERUM SMALL mg/dL (NEGATIVE)
[2017-11-14 06:02] LABS: ALKALINE PHOSPHATASE 97 U/L (46-116); ALT (SGPT) 17 U/L (10-68); CALC OSMOLALITY 287 mosm/kg (275-300); CALCIUM 8.5 mg/dL (8.5-10.1); CARBON DIOXIDE 15.3 mmol/L (21.0-32.0); CHLORIDE - SERUM 106 mmol/L (98-107); CREATININE - SERUM 3.2 mg/dL (0.6-1.3); GLUCOSE 138 mg/dL (74-106); MAGNESIUM - SERUM 2.5 mg/dL (1.8-2.4); POTASSIUM - SERUM 4.7 mmol/L (3.5-5.1); PROTEIN - SERUM 5.7 g/dL (6.4-8.2); SODIUM 134 mmol/L (136-145); UREA NITROGEN 62 mg/dL (7-18); eGFR NON AFRICAN AMERICAN 17 mL/min (90-120)
[2017-11-14 06:09] LABS: ALBUMIN 1.7 g/dL (3.4-5.0); PHOSPHOROUS 5.5 mg/dL (2.5-4.9)
[2017-11-14 13:16] LABS: AEROBE ID Final report (())
[2017-11-15] VITALS (58 sets, daily range): BP systolic 83–159; BP diastolic 43–78
[2017-11-15 04:40] LABS: BASOPHILS 0.1 % (0-2); EOSINOPHILS 0.1 % (0-7); HEMATOCRIT 22.3 % (36.0-48.0); IMMATURE GRANULOCYTES 0.8 % (0-5); MCH 27.5 pg (26.0-34.0); MCHC 30.5 g/dL (31.0-37.0); MCV 90.3 fL (80.0-100.0); MEAN PLATELET VOLUME 10.9 fL (7.4-10.4); MONOCYTES 2.8 % (2-11); NEUTROPHILS 88.2 % (40-80); PLATELET COUNT 143 10x3/uL (130-400); RBC 2.47 10x6/uL (4.00-5.40); RDW 20.1 % (11.5-14.5); WBC 17.1 10x3/uL (4.8-10.8)
[2017-11-15 04:41] LABS: HEMOGLOBIN 6.8 g/dL (12-16)
[2017-11-15 04:43] LABS: INR 1.45 (0.85-1.17); PROTIME 17.2 SECONDS (11.6-15.0)
[2017-11-15 04:48] LABS: BILIRUBIN - TOTAL 0.5 mg/dL (0.2-1.3); CALCIUM 8.2 mg/dL (8.5-10.1); CREATININE - SERUM 2.3 mg/dL (0.6-1.3); PHOSPHOROUS 3.8 mg/dL (2.5-4.9); PROTEIN - SERUM 5.9 g/dL (6.4-8.2)
[2017-11-15 04:49] LABS: ALBUMIN 2.3 g/dL (3.4-5.0); ANION GAP 13.9 mmol/L (8-16); POTASSIUM - SERUM 3.9 mmol/L (3.5-5.1)
[2017-11-15 05:21] LABS: HEMATOCRIT 24.8 % (36.0-48.0); HEMOGLOBIN 7.6 g/dL (12-16)
[2017-11-16] VITALS (24 sets, daily range): BP systolic 110–162; BP diastolic 41–88
[2017-11-16 05:38] LABS: BASOPHILS 0.1 % (0-2); EOSINOPHILS 0.1 % (0-7); HEMATOCRIT 28.3 % (36.0-48.0); IMMATURE GRANULOCYTES 1.2 % (0-5); LYMPHOCYTES 8.5 % (15-50); MCH 28.8 pg (26.0-34.0); MCHC 31.8 g/dL (31.0-37.0); MCV 90.7 fL (80.0-100.0); MEAN PLATELET VOLUME 10.7 fL (7.4-10.4); MONOCYTES 3.7 % (2-11); NEUTROPHILS 86.4 % (40-80); PLATELET COUNT 135 10x3/uL (130-400); RDW 19.2 % (11.5-14.5)
[2017-11-16 05:40] LABS: RBC 3.12 10x6/uL (4.00-5.40); WBC 9.8 10x3/uL (4.8-10.8)
[2017-11-16 05:57] LABS: ALBUMIN 2.1 g/dL (3.4-5.0); ANION GAP 18.3 mmol/L (8-16); BILIRUBIN - TOTAL 0.7 mg/dL (0.2-1.3); CALCIUM 8.5 mg/dL (8.5-10.1); CREATININE - SERUM 2.8 mg/dL (0.6-1.3); MAGNESIUM - SERUM 1.9 mg/dL (1.8-2.4); PHOSPHOROUS 4.4 mg/dL (2.5-4.9); POTASSIUM - SERUM 4.3 mmol/L (3.5-5.1); PROTEIN - SERUM 5.5 g/dL (6.4-8.2)
[2017-11-17] VITALS (24 sets, daily range): BP systolic 90–157; BP diastolic 40–94
[2017-11-17 04:18] LABS: BASOPHILS 0.1 % (0-2); EOSINOPHILS 0.4 % (0-7); HEMATOCRIT 27.5 % (36.0-48.0); HEMOGLOBIN 8.4 g/dL (12-16); IMMATURE GRANULOCYTES 1.1 % (0-5); LYMPHOCYTES 12.3 % (15-50); MCHC 30.5 g/dL (31.0-37.0); MCV 91.7 fL (80.0-100.0); MONOCYTES 5.2 % (2-11); NEUTROPHILS 80.9 % (40-80); PLATELET COUNT 152 10x3/uL (130-400); RDW 19.4 % (11.5-14.5)
[2017-11-17 04:24] LABS: WBC 7.3 10x3/uL (4.8-10.8)
[2017-11-17 04:44] LABS: ALBUMIN 2.6 g/dL (3.4-5.0); ANION GAP 15.2 mmol/L (8-16); BILIRUBIN - TOTAL 0.8 mg/dL (0.2-1.3); CALCIUM 8.7 mg/dL (8.5-10.1); CARBON DIOXIDE 25.1 mmol/L (21.0-32.0); CREATININE - SERUM 2.2 mg/dL (0.6-1.3); MAGNESIUM - SERUM 1.7 mg/dL (1.8-2.4); PHOSPHOROUS 3.5 mg/dL (2.5-4.9); POTASSIUM - SERUM 4.3 mmol/L (3.5-5.1); PROTEIN - SERUM 5.8 g/dL (6.4-8.2)
[2017-11-17 12:18] LABS: ACID FAST CULTURE Negative (()); ACID FAST SMEAR Negative (())
[2017-11-17 12:18] LABS: ACID FAST CULTURE Negative (()); ACID FAST SMEAR Negative (())
[2017-11-18] VITALS (24 sets, daily range): BP systolic 91–150; BP diastolic 50–96
[2017-11-18 04:14] LABS: ANION GAP 14.8 mmol/L (8-16); CALCIUM 8.6 mg/dL (8.5-10.1); CARBON DIOXIDE 24.5 mmol/L (21.0-32.0); PHOSPHOROUS 4.2 mg/dL (2.5-4.9); POTASSIUM - SERUM 4.3 mmol/L (3.5-5.1)
[2017-11-18 04:16] LABS: CREATININE - SERUM 2.8 mg/dL (0.6-1.3); MAGNESIUM - SERUM 2.8 mg/dL (1.8-2.4)
[2017-11-18 07:50] LABS: BASOPHILS 0.2 % (0-2); EOSINOPHILS 1.2 % (0-7); HEMATOCRIT 27.2 % (36.0-48.0); HEMOGLOBIN 8.2 g/dL (12-16); IMMATURE GRANULOCYTES 1.4 % (0-5); MCH 28.5 pg (26.0-34.0); MCHC 30.1 g/dL (31.0-37.0); MEAN PLATELET VOLUME 11.1 fL (7.4-10.4); NEUTROPHILS 83.2 % (40-80); PLATELET COUNT 145 10x3/uL (130-400); RBC 2.88 10x6/uL (4.00-5.40); RDW 19.9 % (11.5-14.5)
[2017-11-18 07:52] LABS: MCV 94.4 fL (80.0-100.0); WBC 9.2 10x3/uL (4.8-10.8)
[2017-11-19] VITALS (54 sets, daily range): BP systolic 81–131; BP diastolic 39–93
[2017-11-19 04:54] LABS: BASOPHILS 0.1 % (0-2); EOSINOPHILS 1.2 % (0-7); HEMATOCRIT 25.2 % (36.0-48.0); HEMOGLOBIN 7.6 g/dL (12-16); LYMPHOCYTES 14.8 % (15-50); MCH 28.3 pg (26.0-34.0); MCHC 30.2 g/dL (31.0-37.0); MCV 93.7 fL (80.0-100.0); MEAN PLATELET VOLUME 11.1 fL (7.4-10.4); MONOCYTES 5.5 % (2-11); NEUTROPHILS 77.4 % (40-80); PLATELET COUNT 120 10x3/uL (130-400); RBC 2.69 10x6/uL (4.00-5.40); RDW 19.7 % (11.5-14.5)
[2017-11-19 04:59] LABS: WBC 6.8 10x3/uL (4.8-10.8)
[2017-11-19 05:04] LABS: APTT 38.2 SECONDS (22.8-39.4); INR 1.98 (0.85-1.17); PROTIME 21.9 SECONDS (11.6-15.0)
[2017-11-19 05:19] LABS: ALBUMIN 2.4 g/dL (3.4-5.0); ALKALINE PHOSPHATASE 61 U/L (46-116); BILIRUBIN - TOTAL 1.04 mg/dL (0.2-1.3); CALCIUM 8.4 mg/dL (8.5-10.1); CHLORIDE - SERUM 105 mmol/L (98-107); CREATINE KINASE 16 UL (21-215); CREATININE - SERUM 2.3 mg/dL (0.6-1.3); GLUCOSE 152 mg/dL (74-106); POTASSIUM - SERUM 4.1 mmol/L (3.5-5.1); PROTEIN - SERUM 5.2 g/dL (6.4-8.2); SODIUM 141 mmol/L (136-145); eGFR NON AFRICAN AMERICAN 24 mL/min (90-120)
[2017-11-19 05:20] LABS: ALT (SGPT) 6 U/L (10-68); CALC OSMOLALITY 285 mosm/kg (275-300); UREA NITROGEN 17 mg/dL (7-18)
[2017-11-19 05:29] LABS: KETONE - SERUM NEGATIVE (NEGATIVE)
[2017-11-20] VITALS (30 sets, daily range): BP systolic 82–123; BP diastolic 31–89
[2017-11-20 04:29] LABS: BASOPHILS 0.3 % (0-2); EOSINOPHILS 1.4 % (0-7); HEMATOCRIT 25.9 % (36.0-48.0); HEMOGLOBIN 7.9 g/dL (12-16); LYMPHOCYTES 16.3 % (15-50); MCH 28.7 pg (26.0-34.0); MCHC 30.5 g/dL (31.0-37.0); MCV 94.2 fL (80.0-100.0); MEAN PLATELET VOLUME 11.3 fL (7.4-10.4); MONOCYTES 5.5 % (2-11); NEUTROPHILS 75.5 % (40-80); PLATELET COUNT 107 10x3/uL (130-400); RBC 2.75 10x6/uL (4.00-5.40); RDW 19.9 % (11.5-14.5); WBC 6.2 10x3/uL (4.8-10.8)
[2017-11-20 04:43] LABS: ANION GAP 13.1 mmol/L (8-16); CALCIUM 8.4 mg/dL (8.5-10.1); CARBON DIOXIDE 27.4 mmol/L (21.0-32.0); POTASSIUM - SERUM 4.5 mmol/L (3.5-5.1)
[2017-11-21] VITALS (43 sets, daily range): BP systolic 82–124; BP diastolic 48–99
[2017-11-21 05:12] LABS: ANION GAP 15.1 mmol/L (8-16); CALCIUM 8.4 mg/dL (8.5-10.1); CARBON DIOXIDE 23.3 mmol/L (21.0-32.0); CREATININE - SERUM 3.4 mg/dL (0.6-1.3); MAGNESIUM - SERUM 1.9 mg/dL (1.8-2.4); PHOSPHOROUS 2.9 mg/dL (2.5-4.9)
[2017-11-21 05:16] LABS: BASOPHILS 0.3 % (0-2); EOSINOPHILS 0.3 % (0-7); HEMATOCRIT 28.6 % (36.0-48.0); HEMOGLOBIN 8.7 g/dL (12-16); IMMATURE GRANULOCYTES 1.1 % (0-5); MCH 27.8 pg (26.0-34.0); MCHC 30.4 g/dL (31.0-37.0); MEAN PLATELET VOLUME 11.8 fL (7.4-10.4); MONOCYTES 4.7 % (2-11); NEUTROPHILS 80.6 % (40-80); RBC 3.13 10x6/uL (4.00-5.40); RDW 19.9 % (11.5-14.5)
[2017-11-21 05:17] LABS: MCV 91.4 fL (80.0-100.0); PLATELET COUNT 84 10x3/uL (130-400); WBC 9.4 10x3/uL (4.8-10.8)
[2017-11-21 05:21] LABS: POTASSIUM - SERUM 5.4 mmol/L (3.5-5.1)
[2017-11-21 07:34] LABS: PLATELET ESTIMATE DECREASED
[2017-11-21 08:32] LABS: INR 2.33 (0.85-1.17); PROTIME 24.9 SECONDS (11.6-15.0)
[2017-11-22] VITALS (51 sets, daily range): BP systolic 58–119; BP diastolic 26–95
[2017-11-22 05:19] LABS: ANION GAP 12.2 mmol/L (8-16); CALCIUM 8.4 mg/dL (8.5-10.1); CARBON DIOXIDE 27.4 mmol/L (21.0-32.0); MAGNESIUM - SERUM 1.8 mg/dL (1.8-2.4); PHOSPHOROUS 2.2 mg/dL (2.5-4.9); POTASSIUM - SERUM 4.6 mmol/L (3.5-5.1)
[2017-11-22 05:22] LABS: CREATININE - SERUM 2.5 mg/dL (0.6-1.3)
[2017-11-22 05:25] LABS: BASOPHILS 0.7 % (0-2); EOSINOPHILS 1.4 % (0-7); HEMATOCRIT 29.6 % (36.0-48.0); HEMOGLOBIN 9.1 g/dL (12-16); IMMATURE GRANULOCYTES 0.9 % (0-5); LYMPHOCYTES 24.8 % (15-50); MCH 27.9 pg (26.0-34.0); MCHC 30.7 g/dL (31.0-37.0); MCV 90.8 fL (80.0-100.0); MEAN PLATELET VOLUME 12.1 fL (7.4-10.4); MONOCYTES 6.8 % (2-11); NEUTROPHILS 65.4 % (40-80); PLATELET COUNT 78 10x3/uL (130-400); RBC 3.26 10x6/uL (4.00-5.40); RDW 19.1 % (11.5-14.5)
[2017-11-22 05:34] LABS: WBC 5.8 10x3/uL (4.8-10.8)
[2017-11-22 20:01] LABS: HEMATOCRIT 24.8 % (36.0-48.0); HEMOGLOBIN 7.6 g/dL (12-16)
[2017-11-23] VITALS (87 sets, daily range): BP systolic 79–129; BP diastolic 30–88
[2017-11-23 05:39] LABS: BASOPHILS 0.6 % (0-2); EOSINOPHILS 0.2 % (0-7); HEMATOCRIT 24.5 % (36.0-48.0); HEMOGLOBIN 7.9 g/dL (12-16); IMMATURE GRANULOCYTES 1.9 % (0-5); MCHC 32.2 g/dL (31.0-37.0); MCV 90.1 fL (80.0-100.0); MEAN PLATELET VOLUME 12.2 fL (7.4-10.4); MONOCYTES 5.7 % (2-11); NEUTROPHILS 68.6 % (40-80); RBC 2.72 10x6/uL (4.00-5.40)
[2017-11-23 05:45] LABS: PLATELET COUNT 62 10x3/uL (130-400); WBC 8.2 10x3/uL (4.8-10.8)
[2017-11-23 06:00] LABS: APTT 42.1 SECONDS (22.8-39.4); INR 2.09 (0.85-1.17); PROTIME 22.8 SECONDS (11.6-15.0)
[2017-11-23 06:01] LABS: D-DIMER-QUANTITATIVE 3.13 ug/mLFEU (0.20-0.54)
[2017-11-23 06:02] LABS: ANION GAP 15.9 mmol/L (8-16); CALCIUM 7.8 mg/dL (8.5-10.1); CARBON DIOXIDE 25.3 mmol/L (21.0-32.0); CREATININE - SERUM 3.1 mg/dL (0.6-1.3); MAGNESIUM - SERUM 1.9 mg/dL (1.8-2.4); POTASSIUM - SERUM 5.2 mmol/L (3.5-5.1)
[2017-11-23 06:05] LABS: PHOSPHOROUS 3.9 mg/dL (2.5-4.9)
[2017-11-24] VITALS (96 sets, daily range): BP systolic 87–125; BP diastolic 42–93
[2017-11-24 04:46] LABS: BASOPHILS 0.4 % (0-2); EOSINOPHILS 0.4 % (0-7); HEMATOCRIT 24.3 % (36.0-48.0); HEMOGLOBIN 8.3 g/dL (12-16); IMMATURE GRANULOCYTES 2.4 % (0-5); LYMPHOCYTES 22.1 % (15-50); MCHC 34.2 g/dL (31.0-37.0); MEAN PLATELET VOLUME 11.5 fL (7.4-10.4); MONOCYTES 4.9 % (2-11); NEUTROPHILS 69.8 % (40-80); PLATELET COUNT 58 10x3/uL (130-400); RBC 2.77 10x6/uL (4.00-5.40); RDW 16.8 % (11.5-14.5); WBC 7.4 10x3/uL (4.8-10.8)
[2017-11-24 04:47] LABS: MCV 87.7 fL (80.0-100.0)
[2017-11-24 04:55] LABS: ANION GAP 13.7 mmol/L (8-16); CALCIUM 8.3 mg/dL (8.5-10.1); CARBON DIOXIDE 28.6 mmol/L (21.0-32.0)
[2017-11-24 05:02] LABS: CREATININE - SERUM 2.1 mg/dL (0.6-1.3); POTASSIUM - SERUM 4.3 mmol/L (3.5-5.1)
[2017-11-24 11:11] LABS: INR 1.8 (0.85-1.17); PROTIME 20.3 SECONDS (11.6-15.0)
[2017-11-24 15:23] LABS: AEROBE ID Final report (())
[2017-11-25] VITALS (39 sets, daily range): BP systolic 96–127; BP diastolic 50–77
[2017-11-25 05:16] LABS: BASOPHILS 0.6 % (0-2); EOSINOPHILS 0.3 % (0-7); HEMATOCRIT 28.3 % (36.0-48.0); IMMATURE GRANULOCYTES 1.9 % (0-5); MCH 28.7 pg (26.0-34.0); MCHC 31.8 g/dL (31.0-37.0); MONOCYTES 6.2 % (2-11); RBC 3.14 10x6/uL (4.00-5.40); RDW 17.2 % (11.5-14.5)
[2017-11-25 05:21] LABS: MCV 90.1 fL (80.0-100.0); PLATELET COUNT 78 10x3/uL (130-400)
[2017-11-25 05:39] LABS: CALCIUM 9.1 mg/dL (8.5-10.1); CARBON DIOXIDE 26.7 mmol/L (21.0-32.0); MAGNESIUM - SERUM 2.1 mg/dL (1.8-2.4); PHOSPHOROUS 3.2 mg/dL (2.5-4.9); POTASSIUM - SERUM 4.7 mmol/L (3.5-5.1)
[2017-11-25 05:42] LABS: CREATININE - SERUM 2.8 mg/dL (0.6-1.3)
[2017-11-26] VITALS (24 sets, daily range): BP systolic 84–114; BP diastolic 43–71
[2017-11-26 05:07] LABS: BASOPHILS 0.7 % (0-2); EOSINOPHILS 0.8 % (0-7); HEMATOCRIT 27.1 % (36.0-48.0); HEMOGLOBIN 8.5 g/dL (12-16); IMMATURE GRANULOCYTES 5.4 % (0-5); MCH 28.9 pg (26.0-34.0); MCHC 31.4 g/dL (31.0-37.0); MEAN PLATELET VOLUME 11.8 fL (7.4-10.4); MONOCYTES 3.7 % (2-11); NEUTROPHILS 68.4 % (40-80); PLATELET COUNT 76 10x3/uL (130-400); RBC 2.94 10x6/uL (4.00-5.40); RDW 17.4 % (11.5-14.5)
[2017-11-26 05:17] LABS: INR 1.81 (0.85-1.17); PROTIME 20.4 SECONDS (11.6-15.0)
[2017-11-26 05:18] LABS: APTT 37.9 SECONDS (22.8-39.4); MCV 92.2 fL (80.0-100.0)
[2017-11-26 05:24] LABS: ANION GAP 13.5 mmol/L (8-16); CALCIUM 8.8 mg/dL (8.5-10.1); CARBON DIOXIDE 27.6 mmol/L (21.0-32.0); CREATININE - SERUM 2.2 mg/dL (0.6-1.3); MAGNESIUM - SERUM 1.9 mg/dL (1.8-2.4); PHOSPHOROUS 2.5 mg/dL (2.5-4.9); POTASSIUM - SERUM 4.1 mmol/L (3.5-5.1)
[2017-11-27] VITALS (24 sets, daily range): BP systolic 86–122; BP diastolic 51–82
[2017-11-27 04:21] LABS: BASOPHILS 0.7 % (0-2); EOSINOPHILS 0.7 % (0-7); HEMATOCRIT 25.8 % (36.0-48.0); HEMOGLOBIN 7.9 g/dL (12-16); IMMATURE GRANULOCYTES 7.1 % (0-5); LYMPHOCYTES 22.7 % (15-50); MCH 28.9 pg (26.0-34.0); MCHC 30.6 g/dL (31.0-37.0); MEAN PLATELET VOLUME 11.8 fL (7.4-10.4); MONOCYTES 0.9 % (2-11); NEUTROPHILS 67.9 % (40-80); PLATELET COUNT 77 10x3/uL (130-400); RBC 2.73 10x6/uL (4.00-5.40); RDW 18.2 % (11.5-14.5); WBC 5.4 10x3/uL (4.8-10.8)
[2017-11-27 04:23] LABS: MCV 94.5 fL (80.0-100.0)
[2017-11-27 04:46] LABS: INR 2.15 (0.85-1.17)
[2017-11-27 05:46] LABS: ANION GAP 15.6 mmol/L (8-16); CALCIUM 8.7 mg/dL (8.5-10.1); CARBON DIOXIDE 24.9 mmol/L (21.0-32.0); MAGNESIUM - SERUM 1.8 mg/dL (1.8-2.4); POTASSIUM - SERUM 4.5 mmol/L (3.5-5.1)
[2017-11-27 05:51] LABS: CREATININE - SERUM 2.8 mg/dL (0.6-1.3)
[2017-11-28] VITALS (24 sets, daily range): BP systolic 86–135; BP diastolic 44–81
[2017-11-28 05:04] LABS: BASOPHILS 1.2 % (0-2); EOSINOPHILS 0.5 % (0-7); HEMATOCRIT 30.6 % (36.0-48.0); HEMOGLOBIN 9.1 g/dL (12-16); IMMATURE GRANULOCYTES 7.7 % (0-5); MCH 28.3 pg (26.0-34.0); MCHC 29.7 g/dL (31.0-37.0); MCV 95.3 fL (80.0-100.0); MEAN PLATELET VOLUME 12.2 fL (7.4-10.4); MONOCYTES 2.1 % (2-11); NEUTROPHILS 65.5 % (40-80); RBC 3.21 10x6/uL (4.00-5.40); RDW 18.9 % (11.5-14.5)
[2017-11-28 05:08] LABS: PLATELET COUNT 93 10x3/uL (130-400); WBC 8.2 10x3/uL (4.8-10.8)
[2017-11-28 05:10] LABS: APTT 42.5 SECONDS (22.8-39.4); INR 2.28 (0.85-1.17); PROTIME 24.5 SECONDS (11.6-15.0)
[2017-11-28 05:19] LABS: ALBUMIN 2.9 g/dL (3.4-5.0); ANION GAP 14.6 mmol/L (8-16); BILIRUBIN - TOTAL 3.2 mg/dL (0.2-1.3); CALCIUM 9.4 mg/dL (8.5-10.1); CARBON DIOXIDE 25.4 mmol/L (21.0-32.0); CREATININE - SERUM 3.4 mg/dL (0.6-1.3); MAGNESIUM - SERUM 1.8 mg/dL (1.8-2.4); PHOSPHOROUS 2.9 mg/dL (2.5-4.9); PROTEIN - SERUM 6.3 g/dL (6.4-8.2)
[2017-11-29] VITALS (24 sets, daily range): BP systolic 83–125; BP diastolic 45–81
[2017-11-29 06:08] LABS: BASOPHILS 0.9 % (0-2); EOSINOPHILS 0.1 % (0-7); HEMATOCRIT 27.5 % (36.0-48.0); HEMOGLOBIN 8.2 g/dL (12-16); IMMATURE GRANULOCYTES 9.5 % (0-5); LYMPHOCYTES 18.6 % (15-50); MCH 28.7 pg (26.0-34.0); MCHC 29.8 g/dL (31.0-37.0); MCV 96.2 fL (80.0-100.0); MEAN PLATELET VOLUME 12.4 fL (7.4-10.4); MONOCYTES 2.8 % (2-11); NEUTROPHILS 68.1 % (40-80); RBC 2.86 10x6/uL (4.00-5.40); WBC 7.5 10x3/uL (4.8-10.8)
[2017-11-29 06:15] LABS: PLATELET COUNT 73 10x3/uL (130-400)
[2017-11-29 06:20] LABS: INR 2.46 (0.85-1.17)
[2017-11-29 06:26] LABS: ANION GAP 15.1 mmol/L (8-16); CARBON DIOXIDE 26.3 mmol/L (21.0-32.0); CREATININE - SERUM 2.7 mg/dL (0.6-1.3); MAGNESIUM - SERUM 1.8 mg/dL (1.8-2.4); PHOSPHOROUS 2.4 mg/dL (2.5-4.9); POTASSIUM - SERUM 4.4 mmol/L (3.5-5.1)
[2017-11-30] VITALS (24 sets, daily range): BP systolic 97–131; BP diastolic 46–84
[2017-11-30 04:24] LABS: BASOPHILS 1.4 % (0-2); EOSINOPHILS 0.8 % (0-7); HEMATOCRIT 30.3 % (36.0-48.0); HEMOGLOBIN 9.1 g/dL (12-16); IMMATURE GRANULOCYTES 11.6 % (0-5); LYMPHOCYTES 22.1 % (15-50); MCH 29.1 pg (26.0-34.0); MCV 96.8 fL (80.0-100.0); MEAN PLATELET VOLUME 12.9 fL (7.4-10.4); MONOCYTES 5.4 % (2-11); NEUTROPHILS 58.7 % (40-80); PLATELET COUNT 87 10x3/uL (130-400); RBC 3.13 10x6/uL (4.00-5.40); RDW 19.7 % (11.5-14.5); WBC 7.6 10x3/uL (4.8-10.8)
[2017-11-30 04:40] LABS: PROTIME 21.2 SECONDS (11.6-15.0)
[2017-11-30 04:42] LABS: INR 1.9 (0.85-1.17)
[2017-11-30 04:46] LABS: ANION GAP 13.4 mmol/L (8-16); CALCIUM 9.2 mg/dL (8.5-10.1); CARBON DIOXIDE 27.2 mmol/L (21.0-32.0); PHOSPHOROUS 2.5 mg/dL (2.5-4.9); POTASSIUM - SERUM 4.6 mmol/L (3.5-5.1)
[2017-12-01] VITALS (9 sets, daily range): BP systolic 95–114; BP diastolic 50–69
[2017-12-01 04:43] LABS: ANION GAP 12.6 mmol/L (8-16); CALCIUM 8.9 mg/dL (8.5-10.1); CARBON DIOXIDE 28.8 mmol/L (21.0-32.0); MAGNESIUM - SERUM 1.7 mg/dL (1.8-2.4); POTASSIUM - SERUM 4.4 mmol/L (3.5-5.1)
[2017-12-01 04:45] LABS: CREATININE - SERUM 2.2 mg/dL (0.6-1.3); PHOSPHOROUS 1.7 mg/dL (2.5-4.9)
[2017-12-01 04:58] LABS: INR 2.08 (0.85-1.17); PROTIME 22.8 SECONDS (11.6-15.0)
== END 2017-12-01 17:32 | DRG 3 ==
LOC: D.ICU 05:12 → D.MS 05:12 → D.SDCHOLD 05:12 → D.PAN 11:30 → EDSTATUS 11:30 → D.OPS 11:30 → D.SDCHOLD 11:30 → D.ICU 23:35 → D.MS 10-11 22:00 → D.ICU 11-07 10:06
PROVIDERS: Anesthesiology; Emergency Medicine; General Practice; Internal Medicine; Internal Medicine Nephrology; Internal Medicine Pulmonary Disease; Specialist; Student in an Organized Health Care Education/Training Program; Surgery
PROC: 0DNW4ZZ Release Peritoneum, Percutaneous Endoscopic Approach (ICD-10-PCS; principal; 2017-09-20 13:30)
PROC: 0DBA4ZZ Excision of Jejunum, Percutaneous Endoscopic Approach (ICD-10-PCS; 2017-09-20 13:30)
PROC: 0DB60ZZ Excision of Stomach, Open Approach (ICD-10-PCS; 2017-09-22)
PROC: 0D9600Z Drainage of Stomach with Drainage Device, Open Approach (ICD-10-PCS; 2017-09-22)
PROC: 2W13X6Z Compression of Abdominal Wall using Pressure Dressing (ICD-10-PCS; 2017-09-22)
PROC: 5A1955Z Respiratory Ventilation, Greater than 96 Consecutive Hours (ICD-10-PCS; 2017-09-22)
PROC: 5A1D70Z Performance of Urinary Filtration, Intermittent, Less than 6 Hours Per Day (ICD-10-PCS; 2017-09-25)
PROC: 0W9B3ZZ Drainage of Left Pleural Cavity, Percutaneous Approach (ICD-10-PCS; 2017-09-29)
PROC: 0W9F0ZZ Drainage of Abdominal Wall, Open Approach (ICD-10-PCS; 2017-10-05)
PROC: 05PYX3Z Removal of Infusion Device from Upper Vein, External Approach (ICD-10-PCS; 2017-10-13)
PROC: 05H533Z Insertion of Infusion Device into Right Subclavian Vein, Percutaneous Approach (ICD-10-PCS; 2017-10-13)
PROC: B5161ZA Fluoroscopy of Right Subclavian Vein using Low Osmolar Contrast, Guidance (ICD-10-PCS; 2017-10-13)
PROC: 0D748DZ Dilation of Esophagogastric Junction with Intraluminal Device, Via Natural or Artificial Opening Endoscopic (ICD-10-PCS; 2017-10-23)
PROC: 0D738DZ Dilation of Lower Esophagus with Intraluminal Device, Via Natural or Artificial Opening Endoscopic (ICD-10-PCS; 2017-10-23)
PROC: 0DNW0ZZ Release Peritoneum, Open Approach (ICD-10-PCS; 2017-11-07)
PROC: 0DBM0ZZ Excision of Descending Colon, Open Approach (ICD-10-PCS; 2017-11-07)
PROC: 0DBL0ZZ Excision of Transverse Colon, Open Approach (ICD-10-PCS; 2017-11-07)
PROC: 0DB60ZZ Excision of Stomach, Open Approach (ICD-10-PCS; 2017-11-07)
PROC: 0WPF0JZ Removal of Synthetic Substitute from Abdominal Wall, Open Approach (ICD-10-PCS; 2017-11-07)
PROC: 0DP58DZ Removal of Intraluminal Device from Esophagus, Via Natural or Artificial Opening Endoscopic (ICD-10-PCS; 2017-11-07)
PROC: 3E1M38Z Irrigation of Peritoneal Cavity using Irrigating Substance, Percutaneous Approach (ICD-10-PCS; 2017-11-09)
PROC: 0D1L0ZM Bypass Transverse Colon to Descending Colon, Open Approach (ICD-10-PCS; 2017-11-13)
PROC: 0B113F4 Bypass Trachea to Cutaneous with Tracheostomy Device, Percutaneous Approach (ICD-10-PCS; 2017-11-15)
PROC: 3E1M38Z Irrigation of Peritoneal Cavity using Irrigating Substance, Percutaneous Approach (ICD-10-PCS; 2017-11-15)
PROC: 0DB80ZZ Excision of Small Intestine, Open Approach (ICD-10-PCS; 2017-11-20)
PROC: 0DTJ0ZZ Resection of Appendix, Open Approach (ICD-10-PCS; 2017-11-20)
PROC: 0DBL0ZZ Excision of Transverse Colon, Open Approach (ICD-10-PCS; 2017-11-20)
PROC: 3E1M38Z Irrigation of Peritoneal Cavity using Irrigating Substance, Percutaneous Approach (ICD-10-PCS; 2017-11-22)
PROC: 0D1B0Z4 Bypass Ileum to Cutaneous, Open Approach (ICD-10-PCS; 2017-11-22)
PROC: 3E1M38Z Irrigation of Peritoneal Cavity using Irrigating Substance, Percutaneous Approach (ICD-10-PCS; 2017-11-22)
DX: E66.01 Morbid (severe) obesity due to excess calories (principal); A41.9 Sepsis, unspecified organism; R65.21 Severe sepsis with septic shock; J96.00 Acute respiratory failure, unspecified whether with hypoxia or hypercapnia; K65.9 Peritonitis, unspecified; N17.0 Acute kidney failure with tubular necrosis; J18.9 Pneumonia, unspecified organism; J69.0 Pneumonitis due to inhalation of food and vomit; N18.6 End stage renal disease; K65.1 Peritoneal abscess; J86.9 Pyothorax without fistula; D62 Acute posthemorrhagic anemia; N17.9 Acute kidney failure, unspecified; E87.2 Acidosis; J90 Pleural effusion, not elsewhere classified; J98.11 Atelectasis; K91.89 Other postprocedural complications and disorders of digestive system; T81.4XXA Infection following a procedure, initial encounter; E87.1 Hypo-osmolality and hyponatremia; Z51.5 Encounter for palliative care; Z66 Do not resuscitate; Z68.43 Body mass index [BMI] 50.0-59.9, adult; M19.90 Unspecified osteoarthritis, unspecified site; K76.0 Fatty (change of) liver, not elsewhere classified; F41.8 Other specified anxiety disorders; F41.0 Panic disorder [episodic paroxysmal anxiety]; K21.9 Gastro-esophageal reflux disease without esophagitis; E83.42 Hypomagnesemia; E88.09 Other disorders of plasma-protein metabolism, not elsewhere classified; Z99.2 Dependence on renal dialysis; D69.6 Thrombocytopenia, unspecified